=== PATIENT | female | born 1940 | race Caucasian/White ===

== ENCOUNTER 2023-11-26 09:09 | Day surgery (SDC) | payer OTHER, SELFPAY | END 2023-11-26 11:15 | disposition home or self-care (01) | LOC: CATH 09:09 | PROVIDERS: ATTENDING PHYSICIAN Internal Medicine Cardiovascular Disease; FAMILY PHYSICIAN Internal Medicine | DX: I08.1 Rheumatic disorders of both mitral and tricuspid valves (principal); I70.0 Atherosclerosis of aorta; I08.8 Other rheumatic multiple valve diseases | CPT/HCPCS: 93312; 93320; 93325 ==

== ENCOUNTER → 2023-12-01 14:40 | Outpatient (REF) | payer OTHER, SELFPAY | LOC: PAVMRI 14:40 | PROVIDERS: ATTENDING PHYSICIAN Physician Assistant Surgical; FAMILY PHYSICIAN Internal Medicine; REFERRING PHYSICIAN Student in an Organized Health Care Education/Training Program | DX: M25.572 Pain in left ankle and joints of left foot (principal) | CPT/HCPCS: 73721 ==

== ENCOUNTER 2023-12-07 07:52 | Day surgery (SDC) | payer OTHER, SELFPAY ==
[2023-12-07] VITALS (9 sets, daily range): BP systolic 126–146; BP diastolic 51–126; BMI 24.2
[2023-12-07 08:41] LABS: Hematocrit 33.1 % (37.0-47.0); Hemoglobin 11.2 g/dL (12.0-16.0); Mean Corp Hgb Conc. 33.8 g/dL (33.0-37.0); Mean Corpuscular Hgb 32.9 pg (27.0-31.0); Mean Corpuscular Volume 97.4 fL (81.0-99.0); Mean Platelet Volume 10.6 fL (7.4-10.4); Platelet Count 330 10^3/uL (130-400); Red Cell Dist. Width 12.9 % (11.5-14.5); White Blood Cell Count 6.5 10^3/uL (4.8-10.8)
[2023-12-07] MEDS: LOW STRENGTH ASPIRIN 324 MG PO (08:42)
[2023-12-07] MEDS: NSS 180 ML IV (08:43)
[2023-12-07 09:00] LABS: Blood Urea Nitrogen 20 mg/dl (7-17); Calcium 9.7 mg/dl (8.4-10.2); Carbon Dioxide 25 mmol/L (22-30); Chloride 107 mmol/L (98-107); Estimated Creatinine Clearance 56 ml/min; Glucose 89 mg/dl (70-99); Potassium 4.3 mmol/L (3.5-5.1); Sodium 136 mmol/L (135-145); eGFR > 60.00
--- NOTE | 2023-12-07 10:50 | ITS.CL.CATH ---
Change Management - Catheterization
Cardiac Catheterization
Procedure Report:
RIGHT AND LEFT HEART STUDY
Date of Procedure: December 07, 2023
Referring: Dr. Nilesh Dawson
PROCEDURES:
1. Right heart catheterization
2. Left heart catheterization with coronary and single-plane left ventriculography
INDICATION: Severe mitral regurgitation
ACCESS: Right radial artery and right brachial vein
HEMODYNAMICS : mmHg
RA (m) : 15
RV (s/d,m) : 56/14, 19
PA (s/d, m) : 55/25, 39
PCWP (m) : 26 with V waves to 50 mmHg
AO (s/d, m) : 150/71, 98
LV (s/d) : 152/18
LVEDP : 24
Estimated Jamal Cardiac Output: 3.5 L / min and Cardiac Index: 2.2 L/ min / m-2
CORONARY FINDINGS :
Dominance: Right
LEFT MAIN: Normal
LEFT ANTERIOR DESCENDING: Normal
CIRCUMFLEX: Normal
RIGHT CORONARY ARTERY: Normal
VENTRICULOGRAPHY: Left ventriculography was performed in an LUCIO projection. The digital single-plane left ventricular ejection fraction is estimated above 65% with 4+ mitral regurgitation
RADIATION SUMMARY: Fluoro Time (min): 5.1, Dose (mGy): 173, DAP (Gy.cm2) : 14.6
CONCLUSIONS
1. Mitral regurgitation : Severe 4+ with large V-waves noted on right heart catheterization
2. Coronary arteries are angiographically normal
RECOMMENDATIONS
1. Followup with Dr. Curry as scheduled.
Copy to: Dr. Viktor Curry, Dr. iNlesh Dawson, Dr. Manjit Torres
== END 2023-12-07 13:39 | disposition home or self-care (01) ==
LOC: CATH 07:52
PROVIDERS: ATTENDING PHYSICIAN Internal Medicine Interventional Cardiology; FAMILY PHYSICIAN Internal Medicine
DX: I34.0 Nonrheumatic mitral (valve) insufficiency (principal); I25.10 Atherosclerotic heart disease of native coronary artery without angina pectoris; I34.1 Nonrheumatic mitral (valve) prolapse
CPT/HCPCS: 80048; 85027; 93460; C1769; C1894; Q9967

== ENCOUNTER → 2023-12-22 08:24 | Outpatient (REF) | payer OTHER, SELFPAY | LOC: HWRAD 08:24 | PROVIDERS: ATTENDING PHYSICIAN Thoracic Surgery (Cardiothoracic Vascular Surgery); FAMILY PHYSICIAN Internal Medicine | DX: I34.0 Nonrheumatic mitral (valve) insufficiency (principal); Z01.818 Encounter for other preprocedural examination | CPT/HCPCS: 71275; 74174; Q9967 ==

== ENCOUNTER 2023-12-27 05:08 | Inpatient (IN) | payer OTHER, SELFPAY ==
[2023-12-21 12:04] VITALS: BMI 25.0
[2023-12-21 12:35] LABS: Urine Albumin Negative (Neg - Trace); Urine Bilirubin Negative (Negative); Urine Character Clear (Clear); Urine Color Yellow; Urine Glucose Negative (Negative); Urine Ketone Negative (Negative); Urine Leukocyte Negative (Negative); Urine Nitrite Negative (Negative); Urine Occult Blood Negative (Negative); Urine Urobilinogen Negative (Neg - 1+)
[2023-12-21 12:41] LABS: % Basophils 0.3 % (0-2); % Eosinophils 1.4 % (0-6); % Immature Granulocytes 0.2 % (0-0.5); % Lymphocytes 40.5 % (20.5-51.1); % Monocytes 9.1 % (1.7-9.3); % Neutrophils 48.5 % (42.2-75.2); Absolute Eosinophils 0.1 10^3/uL (0-0.7); Absolute Lymphocytes 2.6 10^3/uL (1.2-3.4); Absolute Monocytes 0.6 10^3/uL (0.1-0.6); Absolute Neutrophils 3.1 10^3/uL (1.4-6.5); Hematocrit 33.6 % (37.0-47.0); Hemoglobin 11.5 g/dL (12.0-16.0); Mean Corp Hgb Conc. 34.2 g/dL (33.0-37.0); Mean Corpuscular Hgb 32.5 pg (27.0-31.0); Mean Corpuscular Volume 94.9 fL (81.0-99.0); Mean Platelet Volume 10.8 fL (7.4-10.4); Nucleated Red Blood Cells % 0 %; Platelet Count 342 10^3/uL (130-400); Red Blood Cell Count 3.54 10^6/uL (4.20-5.40); Red Cell Dist. Width 12.7 % (11.5-14.5); White Blood Cell Count 6.5 10^3/uL (4.8-10.8)
[2023-12-21 12:45] LABS: INR 1.04; PT 13.4 Sec (11.4-14.6)
[2023-12-21 12:46] LABS: APTT 31.4 Sec (23.4-35.0)
[2023-12-21 13:13] LABS: ALT (SGPT) 45 U/L (0-35); AST (SGOT) 44 U/L (14-36); Albumin 4.5 g/dl (3.5-5.0); Alkaline Phosphatase 92 U/L (38-126); Blood Urea Nitrogen 19 mg/dl (7-17); Calcium 10.1 mg/dl (8.4-10.2); Carbon Dioxide 26 mmol/L (22-30); Chloride 104 mmol/L (98-107); Direct Bilirubin 0.1 mg/dl (0.0-0.4); Estimated Creatinine Clearance 44 ml/min; Glucose 93 mg/dl (70-99); Potassium 4.4 mmol/L (3.5-5.1); Sodium 135 mmol/L (135-145); Total Bilirubin 0.6 mg/dl (0.2-1.3); Total Protein 7.2 g/dl (6.3-8.2); eGFR > 60.00
[2023-12-21 13:20] LABS: Glycohemoglobin (HgbA1c) 5.2 % (4.0-5.6)
--- NOTE | 2023-12-21 14:15 | CM ---
spoke to pt in PAT's. we discussed preop MV Repair teaching including driving and lifting restrictions. she is prev indep, lives alone in a 1 story home with 2 steps to enter. she has a cane and a walker to use if needed. she has the ct surg educ
book, soap and instructions. she is agreeable to a f/u visit from the ct transitional care nurses after dc. plan is for MV Repair 12/26, cm role explained and all questions answered.
--- NOTE | 2023-12-21 14:17 | CM ---
spoke to pt in PAT's. we discussed preop MV Repair teaching including driving and lifting restrictions. she is prev indep, lives alone in a 1 story home with 2 steps to enter. she has a cane and a walker to use if needed. she has the ct surg educ
book, soap and instructions. she is agreeable to a f/u visit from the ct transitional care nurses after dc. her daughter will be staying with her. plan is for MV Repair 12/26, cm role explained and all questions answered.
[2023-12-27] VITALS (17 sets, daily range): BP systolic 97–147; BP diastolic 50–72; BMI 23.6
--- NOTE | 2023-12-27 01:33 | W.PN.CT ---
Assessment / Plan
-
Assessment:
S/P Right mini thoracotomy with right common femoral artery and vein cannulation/ Radical mitral valve repair (28 mm band annuloplasty, cleft closure at P1-P2, P2-P3, placement of [place]-Alexis cords to the posterior leaflet x 2 and to the anterior
leaflet at A2 x 2), by Dr. Curry, 12/27/23, pod#1
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
-Mod pulm HTN
-LVEF 55-60% per intraop LEONARDO
-Acute on chronic diastolic CHF
-HTN
-HLD
-Osteoporosis
-Arthritis
-Neuropathy
-Chronic back pain/sciatica s/p steroid injections
-Scleroderma
-Vit D deficiency
-Glaucoma
-Cataracts S/P cataracts with lens implants
-S/P thyroid nodule needle biopsy, 10/2023
-S/P R TKR, 06/26/21
-S/P R inguinal herniorrhaphy
-S/P Partial hysterectomy
-S/P Repair of left wrist fx with retained hardware
-S/P 4-5 teeth extractions with implants
-Acute postop blood loss/Anemia on chronic anemia (stable without blood transfusion)
-Acute postop atelectasis
-Acute postop metabolic acidosis
-Acute postop hypovolemia with subsequent hypervolemia
Plan:
-No major issues overnight. Hemodynamically and neurologically intact
-Successfully extubated yesterday 12/27/23 in the OR
-No drips other than insulin gtt per protocol
-U/o since OR mL
-Monitor chest tube output: med + R pl
-[place] d/c'd yesterday 12/27/23 @ 1800
-D/C'd a-line this AM @ 0400
-Transfer to [facility] phase later today once off insulin gtt
-D/C sibley catheter
-Maintain cordis
-Monitor temporary pacer (will cut prior to d/c home)
-Cont. current meds (ASA, Amiodarone, Lopressor)
-Encourage use of IS
-Wean off of O2 as tolerated
-OOB into chair/Ambulate
Subjective
-
Date of Service: December 27, 2023
Objective Data
-
PT 13.4 Sec (11.4-14.6) 12/21/23 12:15
INR 1.04 12/21/23 12:15
APTT 31.4 Sec (23.4-35.0) 12/21/23 12:15
[2023-12-27 05:48] LABS: Hematocrit 34.6 % (37.0-47.0); Hemoglobin 11.5 g/dL (12.0-16.0); Mean Corp Hgb Conc. 33.2 g/dL (33.0-37.0); Mean Corpuscular Hgb 32.6 pg (27.0-31.0); Mean Platelet Volume 10.7 fL (7.4-10.4); Platelet Count 319 10^3/uL (130-400); Red Blood Cell Count 3.53 10^6/uL (4.20-5.40); Red Cell Dist. Width 12.9 % (11.5-14.5); White Blood Cell Count 6.8 10^3/uL (4.8-10.8)
[2023-12-27] MEDS: PROTONIX 40 MG PO (05:52)
[2023-12-27] MEDS: BACTROBAN 2% OINTMENT 1 APPLIC NASAL ×2 (05:52→20:15)
[2023-12-27] MEDS: MAGNESIUM OXIDE 500 MG PO (05:52)
[2023-12-27] MEDS: LOPRESSOR 25 MG PO (05:52)
--- NOTE | 2023-12-27 06:06 | PTCARENOTE ---
received pt into CVICU room 2266. pt confirmed 2 showers at home. pt clipped, prepped, and washed. pre-op labs obtained and meds given. pre-op education provided. all questions answered.
--- NOTE | 2023-12-27 06:10 | W.CVOR.SURPR ---
CVOR Surgeon Immed Pre Op
-
I have examined this patient prior to performance of the scheduled procedure.
The patient's condition is unchanged from the time of the dictated/written History and
Physical and the patient is able to undergo the scheduled procedure.
Mitral valve repair
[2023-12-27 06:12] LABS: Blood Urea Nitrogen 17 mg/dl (7-17); Calcium 9.6 mg/dl (8.4-10.2); Carbon Dioxide 25 mmol/L (22-30); Chloride 104 mmol/L (98-107); Estimated Creatinine Clearance 56 ml/min; Glucose 92 mg/dl (70-99); Magnesium 2.1 mg/dl (1.6-2.3); Sodium 134 mmol/L (135-145); eGFR > 60.00
[2023-12-27 07:34] LABS: Urine Albumin Negative (Neg - Trace); Urine Bilirubin Negative (Negative); Urine Character Clear (Clear); Urine Color Yellow; Urine Glucose Negative (Negative); Urine Ketone Negative (Negative); Urine Leukocyte Negative (Negative); Urine Nitrite Negative (Negative); Urine Occult Blood Negative (Negative); Urine Specific Gravity 1.005 (<1.030); Urine Urobilinogen Negative (Neg - 1+); Urine pH 6.5 (5.0-9.0)
[2023-12-27 07:53] LABS: ACT+ - POC 82 Seconds (82-134)
[2023-12-27 07:58] LABS: B.E. - POC -2.3 mmol/L; Glucose - POC 102 mg/dl (65-99); HCO3 - POC 24 mmol/L (21-29); Hematocrit - POC 31 % PCV (37-47); Hemodilution- POC No; Hemoglobin Calculated - POC 10.7; Ionized Calcium - POC 1.33 mmol/L (1.12-1.27); O2 Saturation %Calculated-POC 99.8 5 (92-96); PCO2 - POC 44 mmHg (35-45); PO2 - POC 247 mmHg (80-100); Potassium - POC 3.9 mmol/L (3.6-5.0); Sodium - POC 139 mmol/L (135-145); pH - POC 7.34 (7.35-7.45)
--- NOTE | 2023-12-27 08:38 | CM ---
Reviewed chart. Mrs. Kim is in the operating room today. Prior to admission she resides alone in a one stroy home with two steps to enter. Prior to admission she was independent with ambulation and adls. She has a single point cane and
rolling walker at home to use if needed. Her daughter is planning on staying with her after surgery. Will need to see her current functional level to see if she will have any skilled care needs. Medical work-up in progress. The discharge plan is
undetermined at this time.
[2023-12-27 08:42] LABS: ACT+ - POC 408 Seconds (82-134)
[2023-12-27 09:05] LABS: ACT+ - POC 449 Seconds (82-134)
[2023-12-27 09:27] LABS: B.E. - POC -1.3 mmol/L; Glucose - POC 149 mg/dl (65-99); HCO3 - POC 25 mmol/L (21-29); Hematocrit - POC 28 % PCV (37-47); Hemodilution- POC Yes; Hemoglobin Calculated - POC 9.6; Ionized Calcium - POC 1.01 mmol/L (1.12-1.27); O2 Saturation %Calculated-POC 99.9 5 (92-96); PCO2 - POC 50 mmHg (35-45); PO2 - POC 355 mmHg (80-100); Potassium - POC 6.4 mmol/L (3.6-5.0); Sodium - POC 135 mmol/L (135-145); pH - POC 7.31 (7.35-7.45)
[2023-12-27 09:53] LABS: ACT+ - POC 504 Seconds (82-134)
[2023-12-27 09:57] LABS: B.E. - POC 0.9 mmol/L; Glucose - POC 167 mg/dl (65-99); HCO3 - POC 25 mmol/L (21-29); Hematocrit - POC 26 % PCV (37-47); Hemodilution- POC Yes; Hemoglobin Calculated - POC 8.8; Ionized Calcium - POC 1.06 mmol/L (1.12-1.27); O2 Saturation %Calculated-POC 99.9 5 (92-96); PCO2 - POC 35 mmHg (35-45); PO2 - POC 315 mmHg (80-100); Potassium - POC 5.9 mmol/L (3.6-5.0); Sodium - POC 135 mmol/L (135-145); pH - POC 7.46 (7.35-7.45)
[2023-12-27 10:28] LABS: B.E. - POC -1.8 mmol/L; Glucose - POC 125 mg/dl (65-99); HCO3 - POC 25 mmol/L (21-29); Hematocrit - POC 27 % PCV (37-47); Hemodilution- POC Yes; Hemoglobin Calculated - POC 9.3; Ionized Calcium - POC 1.15 mmol/L (1.12-1.27); O2 Saturation %Calculated-POC 99.1 5 (92-96); PCO2 - POC 50 mmHg (35-45); PO2 - POC 150 mmHg (80-100); Potassium - POC 4.7 mmol/L (3.6-5.0); Sodium - POC 141 mmol/L (135-145)
[2023-12-27 10:28] LABS: ACT+ - POC 466 Seconds (82-134)
[2023-12-27 11:03] LABS: ACT+ - POC 98 Seconds (82-134)
--- NOTE | 2023-12-27 11:23 | W.PN.CT.SURG ---
CT Surgery Operative Note
-
CARDIAC SURGERY OPERATIVE REPORT
Preoperative Diagnosis: Myxomatous degeneration of mitral valve with severe mitral valve insufficiency, symptomatic
Postoperative Diagnosis: Same
Procedure(s) Performed:
1. Right mini thoracotomy with right common femoral artery and vein cannulation under LEONARDO guidance using open Seldinger technique
2. Radical mitral valve repair (28 mm band annuloplasty, cleft closure at P1-P2, P2-P3, placement of [place]-Alexis cords to the posterior leaflet x 2 and to the anterior leaflet at A2 x 2)
3. Placement temporary ventricular pacing wires
4. Trans esophageal echocardiography
Date of Surgery: 12/27/2023
Comorbidities:
1. 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
2. Shortness of breath, symptomatic mitral insufficiency
3. Glaucoma
4. Hypertension
5. Hyperlipidemia
6. Orthopedic issues
7. Osteopenia/osteoporosis
8. Acute on chronic congestive heart failure with LVEDP measuring 24 with a wedge pressure of 26 on cath, secondary to significant volume overload from mitral valve insufficiency
Attending Surgeon: Viktor Curry MD, MS
Assistants: Kaylyn Muñoz PA-C (present and necessary for retraction, suctioning, exposure, suture management, wound closure, etc. under my direction)
Anesthesiology: Yuri Alberts MD and Cirilo Bravo CRNA
Scrub and Circulating RNs: Caroline Bazan RN, Emily Wagner RN
Set Up Mechanic Automatic Line: Fred Loya CCP
Anesthesia: GETA
EBL: per perfusion records
Products: None
CPB Time: 121 minutes
Aortic Cross Clamp Time: 90 minutes
Indication(s) for Procedures: This is an 83-year-old female who has known mitral valve insufficiency. She developed worsening mitral valve regurgitation likely secondary to a flail segment of P2. She underwent left heart cath which found
significant elevation in her LVEDP and wedge pressures indicating acute on chronic congestive heart failure with volume overload. She was developing worsening shortness of breath even with light exertion. Given her stage D symptomatology, she met
class I indication for mitral valve repair.
Mitral Valve Description: Thickened leaflets both anterior and posterior. Significant prolapse of P2 and P3 with large cleft between P2 and P3. Flail segment at P2. Short C-sept distance making her high risk for systolic anterior motion of the
leaflets.
Implants:
1. 28mm ANNA PhysioFlex Band, SN [id number]
2. 4 pairs of CV-4 GoreTex neochordalplasty (2 pairs to the PL and 2 pairs to the AL at A2
Specimen:
1. None
Findings: Left ventricular ejection fraction preoperatively was approximately 60% with no regional wall motion abnormalities. Following surgery EF remained the same with no new regional wall motion abnormalities. The mitral valve was inspected and
found to have significant prolapse of P2 and P3 scallops with a flail segment at the P2 free margin. Her coaptation�septal distance was short approximate 1.9 making her at high risk for systolic anterior motion of mitral leaflets. The mitral valve
was repaired with a total of 12 nonpledgeted 2 Ethibond sutures to secure the annulus to a 28 mm band annuloplasty. 2 pairs of [place]-Alexis sutures were placed from the posterior medial papillary muscle heads to the P2 and P3 along with cleft closure
at P1 P2/P2 P3. 2 additional pairs of [place]-Alexis sutures were placed from the anterior lateral and posterior medial papillary muscle heads to the A2 scallop to reduce the risk of systolic anterior motion postoperatively. After coming off
cardiopulmonary bypass, there was [id number] residual mitral valve insufficiency, no systolic anterior motion of the leaflets, and a mean gradient of 1mmHg across the valve. Her cardiac index had improved from approximately 1.5 to 1.8-1.9
without inotropic support. Of note, our Hanane clamp was malfunctioning and so I had exchange for a new Hanane clamp and also deliver cardioplegia again in order to obtain an adequate cardiac arrest.
Description of Procedure: The patient was brought to the operating room and placed supine in the table with their right side bumped up and right arm down. Arterial and central access was performed by anesthesiology. The patient was prepped from chin
to toes in the typical sterile fashion. Trans esophageal evaluation of cardiac function and all valvular structures was conducted. Before commencing, a time out was performed by all members of the team. All were in agreement with the procedure and
laterality and I proceeded. A small right groin incision was made to expose the common femoral artery and vein. A total of 35,000 units of heparin was given. A 5-6 cm right lateral thoracotomy was performed over the 4th intercostal space verified by
visualization of the hilum. The common femoral artery and vein were cannulated under transesophageal guidance using open Seldinger technique. The arterial line was verified to have an appropriate bounce and pressure correlating with testing. Once
the ACT was above 400, retrograde autologous priming was done and we commenced cardiopulmonary bypass. Target core temperature was 33-34�C.
Carbon dioxide was used to flood the field. The course of the phrenic nerve was identified to prevent injury. The pericardium was opened and two stay sutures were placed to facilitate a ``pericardial table.�� The oblique sinus was developed followed
by the inter atrial groove. An antegrade root vent was inserted and secured with a pursestring suture. The pump flow and mean arterial pressure were lowered and an aortic cross clamp was applied to the ascending aorta. A total of 1.2L initial dose
of Antegrade cardioplegia was delivered. We had rapid electro myocardial quiescence at 170cc of cardioplegia. However, it appears that she would clamp was damaged and full cross-clamp of the aorta was not achieved and so she had recovery electro
myocardial activity after just 1 minute of crossclamping. This was then exchanged out for an issue with a clamp and additional cardioplegia was given until there was electrical myocardial quiescence. The ventricle was monitored for distension by
echocardiogram during this time. The left atrium was incised and enlarged. A left atrial lift retractor was placed. The mitral valve was inspected. The mitral valve was repaired as described above. The left atriotomy was closed with 3-0 prolene in a
running fashion leaving a ventricular vent in place to de-air. After filling the heart, the vent was removed and the prolene was secured with a corknot. Unipolar ventricular pacing wire was placed on the base of the right ventricle. The patient was
placed into Trendelenburg position and pump flows were lowered. The clamp was slowly removed with the root vent turned on. De-airing maneuvers were performed. We started to rewarm with a target of 36.5�C.
As the heart recovered, the mitral valve and ventricular function were assessed under transesophageal echocardiogram. The LV vent and root vents were removed. Once weaning parameters were satisfactory, cardiopulmonary bypass flow was lowered until
we were off cardiopulmonary bypass the mitral valve was inspected again. All surgical sites were inspected for hemostasis and appeared appropriate. The lines were clamped and the arterial was relocated to the venous cannula to give back volume. A
test dose of protamine was delivered and patient was monitored for any adverse reactions followed by complete protamine dosing. The femoral vessels were decannulated and repaired as indicated. The pericardium was approximated with 2-0 ethibond
sutures secured with corknots. One 19F Kin drain remained in the pleural space and one 24F kin drain in the pericardium. There was an excellent palpable distal to the TASSEL MAKING MACHINE OPERATOR cannulation site. Local analgesia was injected to the thoracotomy. The rib
space was approximated with #2 ethibond suture. The incision was closed in layers in a running fashion.
All instrument, sponge, and needle counts were confirmed to be correct x 2 at the end of the operation. The patient was transferred to the cardiac intensive care unit in extubated, critical but stable condition.
I, Dr. Viktor Curry, was present, scrubbed for, and performed all critical elements of this procedure.
Viktor Curry MD, MS
Cardiothoracic Surgeon
[facility]
This dictation was created using the [employer] dictation system. Please excuse any grammatical, typographical, or 'sound alike' errors
[2023-12-27 11:30] LABS: B.E. - POC -5.7 mmol/L; Glucose - POC 79 mg/dl (65-99); HCO3 - POC 21 mmol/L (21-29); Hematocrit - POC 27 % PCV (37-47); Hemodilution- POC Yes; Hemoglobin Calculated - POC 9.2; O2 Saturation %Calculated-POC 99.1 5 (92-96); PCO2 - POC 46 mmHg (35-45); PO2 - POC 158 mmHg (80-100); Potassium - POC 4.4 mmol/L (3.6-5.0); Sodium - POC 143 mmol/L (135-145); pH - POC 7.27 (7.35-7.45)
--- NOTE | 2023-12-27 11:35 | PTCARENOTE ---
Received patient from CVOR at 1135. Pt extubated. Drowsy. Pt oriented to self, place, and time. Able to squeeze hands and wiggle toes with equal strength throughout. NSR with PVCs on tele with rates in the 60s. BP stable 123/56. CI 2.07. PA 35/18,
CVP 11. Heart tones audible. Bilateral radial and DP pulses palpable. No edema noted. Epicardial v-wire present set to back up 50/8/0.8, no pacing noted after thresholds completed. Transitioned to 6L NC. POX 95%. Lungs diminished throughout.
Mediastinal and Right pleural chest tube y-sited to 1 atrium to -20cm suction draining red fluid. No air leaks, tidaling, crepitus noted. Abdomen soft, nontender. Hypoactive BS. Victoria catheter intact draining adequate amounts of clear yellow urine.
Right lateral chest incision approximated with skin glue, FRANCES. Scattered right chest puncture sites approximated with skin glue, IRRIGATOR GRAVITY FLOW. Right groin incision approximated with skin glue, IRRIGATOR GRAVITY FLOW. Right IJ cordis and swan floated to 42cm. Left radial nuris
intact. All lines flushed, leveled, and zeroed with appropriate waveforms. Right AC 20g PIV intact. VIP and Cordis NSS KVOs infusing. No other gtts at this time. Post op labs, EKG, and CXR completed. See MAR for medication administration. See
worklist for complete nursing assessment.
[2023-12-27 11:49] LABS: Glucose - Point of Care 106 mg/dl (70-99)
[2023-12-27 11:52] LABS: HCO3 22.6 mmol/L (21-28); Ionized Calcium 1.37 mMOL/L (1.15-1.33); O2 Saturation % 99.1 % (94-98); PCO2 47 mmHg (32-35); PO2 128 mmHg (83-108); Potassium 4.6 mMOL/L (3.5-5.1); Sodium 139 mMOL/L (136-145); pH 7.29 (7.35-7.45)
[2023-12-27 11:53] LABS: Hematocrit 28.6 % (37.0-47.0); Hemoglobin 9.9 g/dL (12.0-16.0); Platelet Count 204 10^3/uL (130-400)
[2023-12-27] MEDS: ANCEF 10 IV ×2 (11:55→11:56)
[2023-12-27] MEDS: NSS 500 IV (11:56)
[2023-12-27] MEDS: NEURONTIN PO (11:56)
[2023-12-27 12:03] LABS: INR 1.31; PT 16.1 Sec (11.4-14.6)
[2023-12-27 12:04] LABS: APTT 31.3 Sec (23.4-35.0)
[2023-12-27 12:06] LABS: Blood Urea Nitrogen 14 mg/dl (7-17); Estimated Creatinine Clearance 56 ml/min; Glucose 104 mg/dl (70-99); Magnesium 4.3 mg/dl (1.6-2.3)
--- NOTE | 2023-12-27 12:22 | CON.INTV ---
Consultation
Consultation Request
Date/Time Consultation Requested: 12/27/2023-12:30 PM
Date/Time Consultation Performed: 12/27/2023-12:30 PM
Requesting Provider: Cardiothoracic surgery
Performing Provider: Dr. Emanuel
Reason for Consultation: Postoperative ventilator/critical care management
Medical History
-
Chief Complaint: Mitral valve insufficiency secondary to myxomatous degeneration type II wit
History of Present Illness:
83-year-old female with a history of mitral valve insufficiency, hypertension, hyperlipidemia as well as osteoporosis with acute on top of chronic congestive heart failure had symptomatic mitral valve insufficiency and underwent minithoracotomy with
radical mitral valve repair-correctional officer lieutenant consulted for postoperative ventilator/critical care management 12/27/2023. The patient was extubated prior to coming to the ICU. Patient is moving extremities, extremely groggy and review of systems reliably
cannot be obtained.
Past Medical History
Past Medical History: None (Hypertension. Hyperlipidemia. Osteoporosis. Glaucoma. Mitral valve insufficiency status post radical repair 12/2023. Right TKR 2020)
Social History
Tobacco: Non-smoker
Alcohol: None
Drug: None
Living: With Family
Occupational Exposures: No known asbestos exposure
Environmental Exposures: No known tuberculosis exposure
Family History
Family History: Other (Aortic aneurysm, diabetes, CAD and hypertension)
Allergies / Home Medications
Allergies
Allergy/AdvReac Type Severity Reaction Status Date / Time
acetaminophen [From Percocet] Allergy Nausea / Verified 12/20/23 08:52
Vomiting
adhesive tape [Adhesive Tape] Allergy Rash Verified 12/24/23 16:49
oxycodone [From Percocet] Allergy Nausea / Verified 12/20/23 08:52
Vomiting
Home Medications
Medication Instructions Recorded Confirmed Last Taken Type
latanoprost 0.005 % eye drops 1 drp ophthalmic (eye) HS ##0 06/03/21 12/27/23 12/26/23 22:00 History
multivitamin with folic acid 400 1 tab PO DAILY 06/03/21 12/27/23 12/26/23 08:00 History
mcg tablet (Tab-A-Dano)
Pravagen 1 cap PO DAILY 11/26/23 12/27/23 12/26/23 08:00 History
coenzyme Q10 100 mg capsule 300 mg PO DAILY 11/26/23 12/27/23 12/26/23 08:00 History
(CoQ-10)
turmeric 400 mg capsule 1,500 mg PO DAILY 11/26/23 12/27/23 12/17/23 08:00 History
Review of Systems
-
Unable to Obtain full review of systems at this time due to: Patient Intubation
Vitals / Labs / Diagnostic Testing
Vital Signs
Temp Pulse Resp BP Pulse Ox
96.6 F L 66 17 125/57 97
12/27/23 12:00 12/27/23 12:10 12/27/23 12:10 12/27/23 12:00 12/27/23 12:10
Lab Data
12/27/23 11:46
Laboratory Results
12/27/23
11:46
pH 7.29 L
pCO2 47 H
pO2 128 H
HCO3 22.6
O2 Delivery Level Not Reportable
Diagnostic Testing:
Physical Exam
-
Exam:
Well-nourished and well-developed in no apparent distress
HEENT-atraumatic, normocephalic, oral tracheal intubation
Heart-regular rate and rhythm-no murmurs, rubs or gallops
Chest-clear to auscultation, no wheezes, crackles, median sternotomy bandage is not removed
Abdomen soft nondistended
Extremities-no cyanosis, clubbing, edema and good peripheral pulses
Integument-intact, no rashes, lesions or ecchymosis
Neurologically not alert, not oriented, not moving any of his extremities sedated on a ventilator
Assessment
-
83-year-old female with a history of mitral valve insufficiency, hypertension, hyperlipidemia as well as osteoporosis with acute on top of chronic congestive heart failure had symptomatic mitral valve insufficiency and underwent minithoracotomy with
radical mitral valve repair-correctional officer lieutenant consulted for postoperative ventilator/critical care management 12/27/2023.
Assessment
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
Status post right minithoracotomy-radical mitral valve repair-Dr. Curry-12/27/2023
Mild anemia-hemoglobin 9.9
Incidental pulmonary nodules noted on CT chest-sub-5 mm right upper lobe
Conditions present prior to admission:
Hypertension.
Hyperlipidemia.
Osteoporosis.
Glaucoma.
Mitral valve insufficiency status post radical repair 12/2023.
Right TKR 2020
Plan
Patient tolerated extubation intraoperatively-currently very groggy
FiO2 will be weaned
Follow ABG if needed
Aspiration precautions
Incentive spirometry if needed
Nebulizers if needed-currently not bronchospastic
Pulmonary artery catheter parameters will be followed
Pressors/antihypertensive/inotropes/diuretics will be provided as needed
Temporary epicardial pacer in place
Monitor chest tube output
Monitor hemoglobin
Monitor platelet count and coags
Transfuse blood product if needed
CT surgery following chest tubes
Monitor blood sugar
Insulin drip per protocol
Aspiration precautions
VAP prevention protocol
DVT prophylaxis
Early nutrition
Early mobilization
Consider outpatient pulmonary follow-up of incidental pulmonary nodules-recommend repeat CT chest in 1 year
Critical care statement: A total of 46 minutes of critical care time was provided for this patient today. This includes management of ventilator, spontaneous breathing trial, arterial blood gases, pressors, of unstable vital signs, evaluation of the
patient at bedside, ventilator and pressor management, reviewing the patient's pertinent medical records including radiographs, microbiology, laboratory evaluations, and discussion with primary team and critical care nursing.
Diagnostic data:
Chest x-ray 12/27/2023-left basilar atelectasis
CT chest abdomen and pelvis 12/22/2023-no acute pathology within the chest abdomen or pelvis, couple questionable sub-5 mm nodules right upper lobe
Cardiac catheterization 12/07/2023-the right and left heart, RA 15, RV 56/14, PA 55/25, PCWP 26 with V waves up to 50, LVEDP 24, no significant coronary artery disease
Data Reviewed
-
EKG: Report reviewed by me
Radiology: Report reviewed by me
CT Scan: Report reviewed by me
Ultrasound: Report reviewed by me
Medical Tests (Nuc Med, Echo etc): Report reviewed by me
Labs: Labs reviewed by me
Old Records: Reviewed
Critical Care Time (in minutes): 50
--- NOTE | 2023-12-27 12:35 | PTCARENOTE ---
CT ROLL FINISHER notified of pH 7.29. Also notified of allergy to acetaminophen and orders for drug. Per CT ROLL FINISHER, may still give acetaminophen as ordered. Pt's daughter and son at bedside for visit.
[2023-12-27 13:08] LABS: Glucose - Point of Care 180 mg/dl (70-99)
[2023-12-27] MEDS: TORADOL 15 MG IV (13:20)
[2023-12-27] MEDS: ROXICODONE 2.5 MG PO (13:20)
--- NOTE | 2023-12-27 13:26 | W.PN.CARDCBS ---
Addendum entered and electronically signed by Marbin Rubio MD 12/27/23 15:41:
I saw and examined the patient.
The UX ARCHITECT or PA's note was reviewed and I agree with the note.
Comment: General: Well developed, well nourished in NAD.
Neck: Supple, no JVD, HJR, carotids +2 B/L, no bruits bilaterally.
Heart: Non displaced PMI, RRR, no murmurs, No S3, S4, no rubs.
Lungs: Clear to auscultation bilaterally, no wheeze, rhonchi, rubs bilaterally,
normal expiratory phase.
Extremities: No clubbing, cyanosis or edema bilaterally.
Neuro: Grossly nonfocal, awake, alert and oriented x3.
Kiarra has no significant past medical history. She is seen status post mitral valve repair via minithoracotomy. She was extubated in the OR. Cardiac index 2.1 PA pressure 31/17. She is on no pressors. Stable cardiology status. Discussed at
bedside with patient's son and daughter
Original Note:
Today's Communication / Plan
-
Continue post op care
Impression / Plan
-
PCP: Dr. Dozier
Paint Prepper: Dr. Dawson
Impression:
Severe MR
s/p mini thoracotomy mitral valve repair (28 mm band annuloplasty, cleft closure at P1-P2, P2-P3, placement of [place]-Alexis cords to the posterior leaflet x 2 and to the anterior leaflet at A2 x 2) 12/27/2023
Glaucoma
Thyroid nodules
LEONARDO 11/26/2023: EF 55-60%, bileaflet prolapse located predominately at P2/P3 and A2, posterior leaflet with possible torn chord, severe eccentric MR, mean gradient 4 mmHg, moderate TR, systolic flow reversal in pulmonary veins
Plan:
-Patient had increased SOB for approximately 6 months and was found to have severe MR.
-Is now s/p mini thoracotomy and MVR 12/27/2023 as noted above. Seen postop in CVICU.
-Extubated and off pressors. Only complaint is back pain.
-No blood products given intra op. Hgb 9.9.
-Post op EKG stable. SR w/ PVCs.
-Continue post op care
-Wean O2 as able.
Progress Note - Paint Prepper
Subjective
Date of Service: December 27, 2023
Only complaint is back pain.
Objective
Labs:
12/27/23 11:46
Labs
Hgb 9.9 g/dL (12.0-16.0) L 12/27/23 11:46
Hct 28.6 % (37.0-47.0) L 12/27/23 11:46
Plt Count 204 10^3/uL (130-400) D 12/27/23 11:46
PT 16.1 Sec (11.4-14.6) H 12/27/23 11:47
INR 1.31 12/27/23 11:47
APTT 31.3 Sec (23.4-35.0) 12/27/23 11:47
Sodium 134 mmol/L (135-145) L 12/27/23 05:27
Potassium 4.0 mmol/L (3.5-5.1) 12/27/23 05:27
BUN 14 mg/dl (7-17) 12/27/23 11:46
Creatinine 0.6 mg/dL (0.6-1.0) 12/27/23 11:46
Glucose 104 mg/dl (70-99) H 12/27/23 11:46
Vital Signs and I&O:
Vital Signs
Temp Pulse Resp BP Pulse Ox
97.6 F 67 24 115/55 97
12/27/23 13:00 12/27/23 13:10 12/27/23 13:10 12/27/23 13:00 12/27/23 13:10
Vital Signs
Temp Pulse Resp BP Pulse Ox
97.6 F 67 24 115/55 97
12/27/23 13:00 12/27/23 13:10 12/27/23 13:10 12/27/23 13:00 12/27/23 13:10
Intake & Output
12/25/23 12/26/23 12/27/23 12/28/23
06:59 06:59 06:59 06:59
Intake Total 156 / 156
Output Total 350 / 350
Balance -194 / -194
Physical Exam
Physical Exam
GEN: No distress, awake, responds appropriately to questions
HEENT: supple, anicteric, mmm
LUNGS: CTA b/l, no wheezes/rales
CV: Reg, S1/S2, no murmur
EXT: No clubbing, cyanosis, or edema
NEURO: Gross non-focal
SKIN: Warm, dry, no rash. R chest incision well approximated
--- NOTE | 2023-12-27 13:36 | W.PN.UPDATE ---
Update Note
Progress Note Update
83 year old female admitted for elective mitral valve repair
IV fluids: 1000
U.O.:� 300
Blood:� none
Wires:� V-wires
Inotropes:� none
Pressors:� none
Sedatives:� none
�
NEURO: drowsy, extubated in OR, CHACKO to command, pupils +3mm B/L
RESP: Lungs clear B/L. 1mediastinal and R pleural (25cc on arrival) chest tubes to -20cm suction. Sanguineous drainage
CV: RRR +S1, S2, no S3, no�rub, no murmur. Dermabond to right mini-thoracotomy. RIJ w/[place] locked @ 40cm. PA 38/19; CVP 13; CI 2.3
ABD: round, soft, no BS
EXT: no edema, +2/4 DP pulses B/L, no femoral bruit, left radial A-line intact; right femoral cannulation site intact w/o erythema/bleeding
: Victoria with clear yellow urine
�
A/P: POD #0 s/p radical mitral valve repair (#28 mm band annuloplasty, cleft closure at P1-P2, P2-P3, placement of [place]-Alexis cords to the posterior leaflet x 2 and to the anterior leaflet at A2 x 2)
- extubated in OR
- will need instruction regarding antibiotic prophylaxis for dental and invasive procedures
- will need pre-discharge TTE
�
# acute surgical blood loss anemia-expected
- Hb 9.9 asymptomatic
- trend CBC/CT drainage
�
�# Glaucoma
- continue Pravagen and latanoprost
--- NOTE | 2023-12-27 14:00 | PTCARENOTE ---
Pt bathed with CHG wipes. Turned and repositioned from side to side. No significant dumps from chest tubes. Pt tolerated. IS encouraged-500mL achieved. Pt resting comfortably in bed at this time. Family at bedside.
[2023-12-27 14:06] LABS: Glucose - Point of Care 134 mg/dl (70-99)
[2023-12-27] MEDS: TYLENOL 1000 MG PO ×2 (14:10→22:49)
[2023-12-27 15:02] LABS: Glucose - Point of Care 101 mg/dl (70-99)
[2023-12-27] MEDS: DILAUDID 0.25 MG IV (15:38)
[2023-12-27] MEDS: NEURONTIN 100 MG PO ×2 (15:43→22:49)
[2023-12-27] MEDS: PACERONE 200 MG PO ×2 (15:43→22:49)
[2023-12-27] MEDS: ALBUMIN 5% 250 IV (15:52)
[2023-12-27 15:53] LABS: HCO3 24.3 mmol/L (21-28); PCO2 42 mmHg (32-35); PO2 118 mmHg (83-108); Potassium 4.2 mMOL/L (3.5-5.1); pH 7.37 (7.35-7.45)
[2023-12-27 15:57] LABS: Hematocrit 29.2 % (37.0-47.0); Platelet Count 211 10^3/uL (130-400)
[2023-12-27 15:59] LABS: Glucose - Point of Care 76 mg/dl (70-99)
--- NOTE | 2023-12-27 16:00 | PTCARENOTE ---
Pt reassessed. Pt alert & oriented x4. Pt states she has 8/10 back pain-see MAR. Pt resting between care. NSR on tele with rates in the 60s. BP stable 125/64. POX 100% on 2L NC. CT output WNL. Surgical sites stable. CI 1.73 and UO 25ml last hour, CT
MISSION COORDINATOR aware and orders for 250ml albumin received, administered. Tolerating sips of water and ice chips. All lines remain intact.
--- NOTE | 2023-12-27 17:00 | PTCARENOTE ---
CT ASSISTANT PROFESSOR IN FAMILY STUDIES aware of CI 1.97, no orders at this time.
[2023-12-27 17:02] LABS: Glucose - Point of Care 100 mg/dl (70-99)
[2023-12-27] MEDS: LOW STRENGTH ASPIRIN 81 MG PO (17:02)
[2023-12-27] MEDS: ANCEF 5 IV (17:02)
[2023-12-27] MEDS: FLEXERIL 5 MG PO (17:10)
[2023-12-27] MEDS: LIDOCAINE 4% PATCH 1 PATCH TOPICAL (17:10)
[2023-12-27] MEDS: ROXICODONE 5 MG PO (17:28)
[2023-12-27 18:07] LABS: Glucose - Point of Care 101 mg/dl (70-99)
--- NOTE | 2023-12-27 18:15 | PTCARENOTE ---
CI 1.91, CT PULP REFINER OPERATOR notified. Orders to d/c noreen. Completed, pt tolerated.
[2023-12-27 19:05] LABS: Glucose - Point of Care 105 mg/dl (70-99)
--- NOTE | 2023-12-27 20:00 | PTCARENOTE ---
assumed care of pt from previous RN. pt A&Ox4, resting in bed at time of assessment. VSS. R IJ cordis w/ KVO. L radial a-line. all lines leveled, zeroed, flushed. insulin gtt infusing through PIV, glycemic protocol followed. NSR on tele-monitor, HR
60s. temp epicardial v-wires w/ backup settings VVI 50/8/0.8. CTx2 (R pleural and mediastinal) to -20cm wall suction, draining serosanguineous drainage, no air leak noted. POX 94% on RA. no c/o N/V. pt tolerating clear liquids. sibley catheter
draining clear, yellow urine. all surgical sites stable. see worklist for complete nursing assessment, interventions, VS, I&Os, and gtt titrations.
[2023-12-27] MEDS: SENOKOT-S 1 TABLET PO (20:15)
[2023-12-27 20:22] LABS: Glucose - Point of Care 106 mg/dl (70-99)
[2023-12-27 22:49] LABS: Glucose - Point of Care 87 mg/dl (70-99)
[2023-12-27] MEDS: XALATAN OPHTHALMIC SOLUTION 1 DROP OPHTH (22:49)
[2023-12-28] VITALS (25 sets, daily range): BP systolic 113–146; BP diastolic 55–88; PULSE 60; O2SAT 99; BMI 23.8
--- NOTE | 2023-12-28 | PTCARENOTE ---
assessment remains unchanged. VSS. CT drainage WNL. U/O adequate.
[2023-12-28 01:10] LABS: Glucose - Point of Care 99 mg/dl (70-99)
[2023-12-28] MEDS: ANCEF 5 IV ×2 (02:13→08:05)
[2023-12-28 03:09] LABS: Glucose - Point of Care 104 mg/dl (70-99)
[2023-12-28 03:20] LABS: Hematocrit 29.7 % (37.0-47.0); Mean Corp Hgb Conc. 33.7 g/dL (33.0-37.0); Mean Corpuscular Hgb 32.7 pg (27.0-31.0); Mean Corpuscular Volume 97.1 fL (81.0-99.0); Mean Platelet Volume 10.8 fL (7.4-10.4); Platelet Count 211 10^3/uL (130-400); Red Blood Cell Count 3.06 10^6/uL (4.20-5.40); Red Cell Dist. Width 13.1 % (11.5-14.5); White Blood Cell Count 15.9 10^3/uL (4.8-10.8)
[2023-12-28 03:39] LABS: Blood Urea Nitrogen 28 mg/dl (7-17); Calcium 9.7 mg/dl (8.4-10.2); Carbon Dioxide 19 mmol/L (22-30); Chloride 105 mmol/L (98-107); Estimated Creatinine Clearance 56 ml/min; Glucose 105 mg/dl (70-99); Magnesium 2.9 mg/dl (1.6-2.3); Potassium 4.3 mmol/L (3.5-5.1); Sodium 136 mmol/L (135-145); eGFR > 60.00
--- NOTE | 2023-12-28 03:47 | W.PN.CT ---
Today's Communication / Plan
-
Plan:
-No major issues overnight. Hemodynamically and neurologically intact
-Successfully extubated yesterday 12/27/23 in the OR
-No drips other than insulin gtt per protocol
-U/o since OR 865 mL
-Monitor chest tube output: med + R pl 90/210
-[place] d/c'd yesterday 12/27/23 @ 1800
-D/C'd a-line this AM @ 0400
-Transfer to tele phase later today once off insulin gtt
-D/C sibley catheter
-Maintain cordis
-Monitor temporary pacer (will cut prior to d/c home)
-Cont. current meds (ASA, Amiodarone, Lopressor)
-Encourage use of IS
-Wean off of O2 as tolerated
-OOB into chair/Ambulate
Assessment / Plan
-
Assessment:
S/P Right mini thoracotomy with right common femoral artery and vein cannulation/ Radical mitral valve repair (28 mm band annuloplasty, cleft closure at P1-P2, P2-P3, placement of [place]-Alexis cords to the posterior leaflet x 2 and to the anterior
leaflet at A2 x 2), by Dr. Curry, 12/27/23, pod#1
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
-Mod pulm HTN
-LVEF 55-60% per intraop LEONARDO
-Acute on chronic diastolic CHF
-HTN
-HLD
-Osteoporosis
-Arthritis
-Neuropathy
-Chronic back pain/sciatica s/p steroid injections
-Scleroderma
-Vit D deficiency
-Glaucoma
-Cataracts S/P cataracts with lens implants
-S/P thyroid nodule needle biopsy, 10/2023
-S/P R TKR, 06/26/21
-S/P R inguinal herniorrhaphy
-S/P Partial hysterectomy
-S/P Repair of left wrist fx with retained hardware
-S/P 4-5 teeth extractions with implants
-Acute postop blood loss/Anemia on chronic anemia (stable without blood transfusion)
-Acute postop atelectasis
-Acute postop metabolic acidosis
-Acute postop hypovolemia with subsequent hypervolemia
Discussed patient care with: Cardiology, Nursing, Respiratory Therapy, Pharmacy and Care Team
Subjective
Procedure
S/P Right mini thoracotomy with right common femoral artery and vein cannulation/ Radical mitral valve repair (28 mm band annuloplasty, cleft closure at P1-P2, P2-P3, placement of [place]-Alexis cords to the posterior leaflet x 2 and to the anterior
leaflet at A2 x 2), by Dr. Curry, 12/27/23
-
Date of Service: December 28, 2023
Pt c/o incisional pain, otherwise feels well
Objective Data
-
Lab Results
12/28/23 03:07
12/28/23 03:07
PT 16.1 Sec (11.4-14.6) H 12/27/23 11:47
INR 1.31 12/27/23 11:47
APTT 31.3 Sec (23.4-35.0) 12/27/23 11:47
Vital Signs
Vital Signs
Temp Pulse Resp BP Pulse Ox
100.4 F H 67 29 141/66 97
12/28/23 03:00 12/28/23 03:00 12/28/23 03:00 12/28/23 03:00 12/28/23 03:00
CT Intake/Output/Weight
12/27/23 12/27/23 12/28/23
06:59 18:59 06:59
Intake Total 631.8 / 728.1 96.3 / 728.1
Output Total 655 / 1035 380 / 1035
Balance -23.2 / -306.9 -283.7 / -306.9
SaO2: 97 (RA)
Physical Exam
-
General: Awake, Oriented and AOx3
Cardiovascular: Regular rate & rhythm, No Murmurs, No Rub and No Gallop
Respiratory: Decreased Breath Sounds (at bases, otherwise clear)
Sternum: Stable
Incision: Clean, Dry, Intact and Dressing Intact
Extremities: Other (+trace edema)
Data Reviewed
-
Lab Results: Results Reviewed
Medications: Active Meds Reviewed
Chest X-Ray: Report Reviewed and Image Reviewed
ECG: Report Reviewed and Image Reviewed
--- NOTE | 2023-12-28 04:00 | PTCARENOTE ---
assessment remains unchanged. VSS. AM labs collected and sent. AM EKG performed. a-line discontinued per CVPA. CT drainage and U/O WNL.
[2023-12-28] MEDS: FLEXERIL 5 MG PO ×2 (04:28→21:08)
[2023-12-28 04:53] LABS: Glucose - Point of Care 101 mg/dl (70-99)
[2023-12-28] MEDS: TYLENOL 1000 MG PO ×3 (06:28→21:02)
[2023-12-28 07:14] LABS: Glucose - Point of Care 86 mg/dl (70-99)
--- NOTE | 2023-12-28 07:38 | W.PN.INTV ---
Today's Communication / Plan
Recommendations
Pressors weaned
Insulin drip will be weaned later
Discontinue arterial line
Discontinue Victoria
Monitor temporary pacer
Increase activity
Outpatient pulmonary follow-up of nodules
Transfer to telemetry-service sprinkler helper will sign off-please call with pulmonary questions
Assessment
-
83-year-old female with a history of mitral valve insufficiency, hypertension, hyperlipidemia as well as osteoporosis with acute on top of chronic congestive heart failure had symptomatic mitral valve insufficiency and underwent minithoracotomy with
radical mitral valve repair-service sprinkler helper consulted for postoperative ventilator/critical care management 12/27/2023.
Assessment
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
Status post right minithoracotomy-radical mitral valve repair-Dr. Curry-12/27/2023
Mild anemia-hemoglobin 9.9
Incidental pulmonary nodules noted on CT chest-sub-5 mm right upper lobe
Conditions present prior to admission:
Hypertension.
Hyperlipidemia.
Osteoporosis.
Glaucoma.
Mitral valve insufficiency status post radical repair 12/2023.
Right TKR 2020
Plan
Tolerated extubation
Wean FiO2
Encourage incentive spirometry
Increase activity
Aspiration precautions
Pulmonary artery catheter and arterial line will be removed
Pressors have been weaned
Continue to monitor chest tube output
Follow hemoglobin
Continue to follow platelet count and coags
Transfuse blood product as needed
CT surgery following chest tubes as well
Follow blood sugar
Insulin supplementation continues as needed
Early nutrition
Early mobilization
DVT prophylaxis
Patient will be transferred to telemetry phase-call pulmonary if respiratory issues arise
Reviewed the patient's pertinent medical records including radiographs, microbiology, laboratory evaluations, and discussion with primary team, and critical care nursing.
Consider outpatient pulmonary follow-up of incidental pulmonary nodules-recommend repeat CT chest in 1 year
Reviewed the patient's pertinent medical records including radiographs, microbiology, laboratory evaluations, and discussion with primary team and critical care nursing.
Diagnostic data:
Chest x-ray 12/27/2023-left basilar atelectasis
CT chest abdomen and pelvis 12/22/2023-no acute pathology within the chest abdomen or pelvis, couple questionable sub-5 mm nodules right upper lobe
Cardiac catheterization 12/07/2023-the right and left heart, RA 15, RV 56/14, PA 55/25, PCWP 26 with V waves up to 50, LVEDP 24, no significant coronary artery disease
Subjective Dataa
Subjective Data
Date of Service:
Date of Service: December 28, 2023
Chief Complaint: Gambling Floor Supervisor Follow Up, Pulmonary Follow Up and Vent Management Follow Up
Subjective:
Tolerated extubation, no complaints of shortness of breath, some pain from incision, nursing aware and will be providing analgesia
Review of Systems
General: Other ( per HPI)
Objective Data
Data Reviewed
Vital Signs / I&O / Oxygen:
Vital Signs
Temp Pulse Resp BP Pulse Ox
98.4 F 69 16 130/61 96
12/28/23 07:34 12/28/23 07:30 12/28/23 07:34 12/28/23 07:00 12/28/23 07:34
Intake and Output
12/27/23 12/28/23 12/29/23
06:59 06:59 06:59
Intake Total 760.2 / 770.5 20.6 / 20.6
Output Total 1145 / 1200 55 / 55
Balance -384.8 / -429.5 -34.4 / -34.4
SaO2 96
Nasal Cannula flow liters per 2
minute
Physical Exam
General: Respiratory Distress (n) and Comfortable
HEENT: Normocephalic, Anicteric and Moist Mucous Membranes
Cardiovascular: Regular Rhythm
Respiratory: Wheeze (n), Crackles, Rhonchi (n), Non-Labored Respirations, Accessory Resp Muscle Use (n) and Stridor (n)
GI: Soft, Non Distended and Non Tender
Neurology: Awake, Alert and No Motor Deficits
Skin: Warm, Good Color, Cyanosis (n), Jaundice (n) and Rash (n)
Labs/Micro/Reports
Lab Data
12/28/23 03:07
12/28/23 03:07
Laboratory Results
12/27/23 12/27/23 12/27/23
11:46 11:47 15:33
PT 16.1 H
INR 1.31
APTT 31.3
pH 7.29 L 7.37
pCO2 47 H 42 H
pO2 128 H 118 H
HCO3 22.6 24.3
O2 Delivery Level Not Reportable
--- NOTE | 2023-12-28 07:55 | PTCARENOTE ---
pt received from previous RN, oriented, OOB in chair. SR on the monitor, HR 60s. V wires in place, VVI 50/8. SBP 130s. palpable pulses, no edema. pt on RA, 94-96% POX. lungs diminished. IS encouraged. CT x2, no air leak or crepitus noted. pt abdomen
s/n, denies n/v. diet tolerated well. Victoria in place, clear yellow urine. R lateral incisions FRANCES, approximated. CT dressing intact. RIJ cordis maintained. PIV. insulin gtt running as ordered. see worklist for VS, I&O, and assessment.
[2023-12-28] MEDS: LIDOCAINE 4% PATCH 1 PATCH TOPICAL (08:04)
[2023-12-28] MEDS: LOW STRENGTH ASPIRIN 81 MG PO (08:05)
[2023-12-28] MEDS: PROTONIX 40 MG PO (08:05)
[2023-12-28] MEDS: SENOKOT-S 1 TABLET PO ×2 (08:05→19:52)
[2023-12-28] MEDS: LOPRESSOR 12.5 MG PO ×2 (08:05→19:52)
[2023-12-28] MEDS: PACERONE 200 MG PO ×3 (08:05→21:02)
[2023-12-28] MEDS: NEURONTIN 100 MG PO ×3 (08:05→21:02)
[2023-12-28] MEDS: BACTROBAN 2% OINTMENT 1 APPLIC NASAL ×2 (08:11→19:53)
[2023-12-28 09:05] LABS: Glucose - Point of Care 89 mg/dl (70-99)
--- NOTE | 2023-12-28 10:26 | PTCARENOTE ---
Victoria dc'd as ordered, V wire insulated. pt placed back to bed. [facility] at bedside, R pleural CT dc'd by [facility], Mediastinal CT remains to suction. dressing c/d/i.
[2023-12-28 11:26] LABS: Glucose - Point of Care 114 mg/dl (70-99)
--- NOTE | 2023-12-28 11:30 | W.PN.ANS.POP ---
Anesthesia Post Operative
- Anesthesia Post Op Note
Vital Signs Stable-See Nursing Note: Yes
Airway Patent: Yes
Adequate Pain Control: Yes
Change in Mental Status: No
Current Postoperative Nausea & Vomiting: No
Anesthesia Complications: No
General Anesthetic Recall: No
Unplanned Admission: No
Post Op Hydration Adequate: Yes
[2023-12-28] MEDS: NSS 500 IV (12:12)
[2023-12-28 12:17] LABS: Glucose - Point of Care 109 mg/dl (70-99)
--- NOTE | 2023-12-28 12:39 | PTCARENOTE ---
Assumed care of patient. Patient is alert and oriented x4, pleasant. In/out of sleep. Denies pain/discomfort. NSR. HR 60s. Audible heart tones. BP 132/72. Palpable pulses. No edema. RA. Oxygen saturation 97%. CT maintained to -20cm wall suction with
small serosanguineous drainage. Abdomen round, slightly distended. Due to void by 1400. Per patient, denies passing gas. R lateral chest incision is approximated with surgical adhesive and open to air. R chest incision is approximated with surgical
adhesive and open to air. R groin incision is approximated with surgical adhesive and open to air. Assist x1 from chair to the bed. Will continue to monitor.
--- NOTE | 2023-12-28 14:10 | W.PN.CARDCBS ---
Addendum entered and electronically signed by Stephany Caceres MD 12/28/23 15:54:
I saw and examined the patient.
The Lye Boiler's note was reviewed and I agree with the note.
Comment: Overall patient is doing well and resting comfortably out of bed in a chair. Continues to complain of some chest discomfort especially pleuritic in nature.
Vital signs and lab work reviewed. She is off pressors. Her Victoria and arterial line have been removed. She is satting well on room air.
Recommendations:
1. Continue with postoperative supportive care. Patient is postop day 1 status post minithoracotomy and MVR on December 27, 2023.
2. Increasing physical activity as tolerated. PT/OT.
3. Close monitoring of blood counts and renal function. Electrolyte repletion as needed.
4. No significant events on telemetry. ECG with probable pericarditis.
Stephany Caceres MD, [facility], [facility]
Original Note:
Today's Communication / Plan
-
Off pressors and insulin
Victoria and A-line removed
On room air
Increase level of activity as tolerated
Continue usual postop care
Impression / Plan
-
PCP: Dr. Dozier
Sales Contracts Analyst: Dr. Dawson
Impression:
Severe MR
s/p mini thoracotomy mitral valve repair (28 mm band annuloplasty, cleft closure at P1-P2, P2-P3, placement of [place]-Alexis cords to the posterior leaflet x 2 and to the anterior leaflet at A2 x 2) 12/27/2023
Glaucoma
Thyroid nodules
LEONARDO 11/26/2023: EF 55-60%, bileaflet prolapse located predominately at P2/P3 and A2, posterior leaflet with possible torn chord, severe eccentric MR, mean gradient 4 mmHg, moderate TR, systolic flow reversal in pulmonary veins
Plan:
-Patient had increased SOB for approximately 6 months and was found to have severe MR.
-Is now s/p mini thoracotomy and MVR 12/27/2023
-Doing well POD1; sitting up in chair
-No blood products with stable Hgb 10.0
-CXR with bilateral segmental atelectasis otherwise unremarkable. Continue incentive spirometry
-Post op remains in sinus rhythm. Postop EKG day [address] elevation consistent with possible pericarditis; denies chest pain and no rub
-Weaned off pressors and insulin. Blood pressure stable
-Arterial line and Victoria removed.
-Continue aspirin, amiodarone, Lopressor
-Continue post op care
-Wean O2 as able.
Progress Note - Sales Contracts Analyst
Subjective
Date of Service: December 28, 2023
Patient seen and examined. Patient feeling well. Denies chest pain, shortness of breath, dizziness.
Objective
Labs:
12/28/23 03:07
12/28/23 03:07
Labs
Hgb 10.0 g/dL (12.0-16.0) L 12/28/23 03:07
Hct 29.7 % (37.0-47.0) L 12/28/23 03:07
Plt Count 211 10^3/uL (130-400) 12/28/23 03:07
PT 16.1 Sec (11.4-14.6) H 12/27/23 11:47
INR 1.31 12/27/23 11:47
APTT 31.3 Sec (23.4-35.0) 12/27/23 11:47
Sodium 136 mmol/L (135-145) 12/28/23 03:07
Potassium 4.3 mmol/L (3.5-5.1) 12/28/23 03:07
BUN 28 mg/dl (7-17) H 12/28/23 03:07
Creatinine 0.6 mg/dL (0.6-1.0) 12/28/23 03:07
Glucose 105 mg/dl (70-99) H 12/28/23 03:07
Vital Signs and I&O:
Vital Signs
Temp Pulse Resp BP Pulse Ox
98.3 F 65 16 132/72 96
12/28/23 12:00 12/28/23 12:14 12/28/23 12:00 12/28/23 12:14 12/28/23 12:14
Vital Signs
Temp Pulse Resp BP Pulse Ox
98.3 F 65 16 132/72 96
12/28/23 12:00 12/28/23 12:14 12/28/23 12:00 12/28/23 12:14 12/28/23 12:14
Intake & Output
12/26/23 12/27/23 12/28/23 12/29/23
06:59 06:59 06:59 06:59
Intake Total 760.2 / 770.5 531.5 / 531.5
Output Total 1145 / 1200 145 / 145
Balance -384.8 / -429.5 386.5 / 386.5
Physical Exam
Physical Exam
GEN: No distress, awake, Ox3; sitting up in chair
HEENT: supple, anicteric, mmm
LUNGS: CTA, no wheezes/rales; on room air
CV: Reg, S1/S2, no murmur, rubs or gallops
Chest: Right minithoracotomy incision well-approximated without drainage or evidence of infection
ABD: soft, BS+, NT/ND
EXT: No edema, clubbing or cyanosis
NEURO: Gross non-focal
SKIN: No rash, warm, dry, pink
--- NOTE | 2023-12-28 15:42 | PTCARENOTE ---
Vital signs stable. NSR. HR 60s. BP 139/64. RIJ cordis maintained with KVO. PIV maintained. RA. Oxygen saturation 97%. CT maintained to -20cm wall suction with small serosanguineous drainage. Patient reclining in chair, does not want to try to void
at this time, no urge. Bladder scanned 214cc. Denies pain/discomfort. Daughter at bedside. Will continue to monitor.
--- NOTE | 2023-12-28 19:00 | PTCARENOTE ---
report received from previous RN, walking rounds done. pt in chair, AAOX4. pt denies any pain. VSS. NSR on monitor, HR 60's-70's. epicardial v.wires intact and insulated. POX 97% on room air. CT x1 intact to -20cm wall suction, drainage WNL, no air
leak present. RIJ cordis intact w KVO infusing. all surgical sites stable. see worklist for full assessment, VS, and interventions. pt resting comfortably.
[2023-12-28 21:12] LABS: Glucose - Point of Care 155 mg/dl (70-99)
[2023-12-28] MEDS: XALATAN OPHTHALMIC SOLUTION OPHTH (22:55)
--- NOTE | 2023-12-28 23:00 | PTCARENOTE ---
no changes in assessment, pt VSS. NSR. RA. RIJ cordis remains intact. CT output WNL. all surgical sites stable. pt sleeping between care.
[2023-12-29] VITALS (11 sets, daily range): BP systolic 93–119; BP diastolic 54–88; PULSE 62; O2SAT 97–98; BMI 23.9
--- NOTE | 2023-12-29 03:00 | PTCARENOTE ---
pt VSS, no changes in assessment. NSR. RA. RIJ cordis remains intact. CT output WNL. all surgical sites stable. AM labs drawn and sent. pt sleeping between care.
[2023-12-29 04:04] LABS: Hematocrit 28.5 % (37.0-47.0); Hemoglobin 9.6 g/dL (12.0-16.0); Mean Corp Hgb Conc. 33.7 g/dL (33.0-37.0); Mean Corpuscular Hgb 32.9 pg (27.0-31.0); Mean Corpuscular Volume 97.6 fL (81.0-99.0); Mean Platelet Volume 11.4 fL (7.4-10.4); Platelet Count 187 10^3/uL (130-400); Red Blood Cell Count 2.92 10^6/uL (4.20-5.40); Red Cell Dist. Width 13.1 % (11.5-14.5); White Blood Cell Count 16.6 10^3/uL (4.8-10.8)
[2023-12-29 04:25] LABS: Blood Urea Nitrogen 33 mg/dl (7-17); Calcium 9.1 mg/dl (8.4-10.2); Carbon Dioxide 25 mmol/L (22-30); Chloride 104 mmol/L (98-107); Estimated Creatinine Clearance 48 ml/min; Glucose 145 mg/dl (70-99); Magnesium 2.4 mg/dl (1.6-2.3); Potassium 4.7 mmol/L (3.5-5.1); Sodium 131 mmol/L (135-145); eGFR > 60.00
--- NOTE | 2023-12-29 05:45 | W.PN.CT ---
Today's Communication / Plan
-
Plan:
-No major issues overnight. Hemodynamically and neurologically intact
-No drips
-Consider d/c of chest tube: med 30/140
-Maintain cordis another day
-Monitor temporary pacer (will cut prior to d/c home)
-Cont. current meds (ASA, Amiodarone, Lopressor, Lasix)
-Monitor hyponatremia, 131. Lasix today, fluid restriction
-Encourage use of IS
-Wean off of O2 as tolerated
-OOB into chair/Ambulate
Assessment / Plan
-
Assessment:
S/P Right mini thoracotomy with right common femoral artery and vein cannulation/ Radical mitral valve repair (28 mm band annuloplasty, cleft closure at P1-P2, P2-P3, placement of [place]-Alexis cords to the posterior leaflet x 2 and to the anterior
leaflet at A2 x 2), by Dr. Curry, 12/27/23, pod#2
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
-Mod pulm HTN
-LVEF 55-60% per intraop LEONARDO
-Acute on chronic diastolic CHF
-HTN
-HLD
-Osteoporosis
-Arthritis
-Neuropathy
-Chronic back pain/sciatica s/p steroid injections
-Scleroderma
-Vit D deficiency
-Glaucoma
-Cataracts S/P cataracts with lens implants
-S/P thyroid nodule needle biopsy, 10/2023
-S/P R TKR, 06/26/21
-S/P R inguinal herniorrhaphy
-S/P Partial hysterectomy
-S/P Repair of left wrist fx with retained hardware
-S/P 4-5 teeth extractions with implants
-Acute postop blood loss/Anemia on chronic anemia (stable without blood transfusion)
-Acute postop atelectasis
-Acute postop metabolic acidosis
-Acute postop hypovolemia with subsequent hypervolemia
-Acute postop hyponatremia, 131
Discussed patient care with: Cardiology, Nursing, Respiratory Therapy, Pharmacy and Care Team
Subjective
Procedure
S/P Right mini thoracotomy with right common femoral artery and vein cannulation/ Radical mitral valve repair (28 mm band annuloplasty, cleft closure at P1-P2, P2-P3, placement of [place]is cords to the posterior leaflet x 2 and to the anterior
leaflet at A2 x 2), by Dr. Curry, 12/27/23
-
Date of Service: December 29, 2023
Pt c/o pleuritic chest pain, otherwise feels well
Objective Data
-
Lab Results
12/29/23 03:37
12/29/23 03:37
PT 16.1 Sec (11.4-14.6) H 12/27/23 11:47
INR 1.31 12/27/23 11:47
APTT 31.3 Sec (23.4-35.0) 12/27/23 11:47
Vital Signs
Vital Signs
Temp Pulse Resp BP Pulse Ox
98.1 F 66 17 106/61 97
12/29/23 03:55 12/29/23 03:55 12/29/23 03:55 12/29/23 03:55 12/29/23 03:55
CT Intake/Output/Weight
12/28/23 12/28/23 12/29/23
06:59 18:59 06:59
Intake Total 128.4 / 770.5 841.5 / 1171.5 330 / 1171.5
Output Total 490 / 1200 480 / 485 5 / 485
Balance -361.6 / -429.5 361.5 / 686.5 325 / 686.5
SaO2: 97 (RA)
Physical Exam
-
General: Awake, Oriented and AOx3
Cardiovascular: Regular rate & rhythm, No Murmurs, No Rub and No Gallop
Respiratory: Decreased Breath Sounds (at bases, otherwise clear)
Sternum: Stable
Incision: Clean, Dry, Intact and Dressing Intact
Extremities: Other (trace edema)
Data Reviewed
-
Lab Results: Results Reviewed
Medications: Active Meds Reviewed
Chest X-Ray: Report Reviewed and Image Reviewed
ECG: Report Reviewed and Image Reviewed
[2023-12-29] MEDS: TYLENOL 1000 MG PO ×3 (06:14→20:59)
--- NOTE | 2023-12-29 08:00 | PTCARENOTE ---
pt received from previous RN, oriented, OOB in chair. SR on the monitor, HR 60s-70s. V wires insulated. SBP 100s. palpable pulses, no edema. pt on RA, 95% POX. lungs diminished. IS encouraged. CT x1, no air leak or crepitus noted. pt abdomen s/n,
denies n/v. diet tolerated well.ambulates to bathroom w/ stand by assist to void. R lateral incisions GREIGE MENDER, approximated. CT dressing intact. RIJ cordis maintained. PIV. see worklist for VS, I&O, and assessment.
[2023-12-29] MEDS: SENOKOT-S 1 TABLET PO ×2 (08:16→20:01)
[2023-12-29] MEDS: LOPRESSOR 12.5 MG PO ×2 (08:16→20:01)
[2023-12-29] MEDS: LOW STRENGTH ASPIRIN 81 MG PO (08:16)
[2023-12-29] MEDS: BACTROBAN 2% OINTMENT 1 APPLIC NASAL ×2 (08:16→20:02)
[2023-12-29] MEDS: PROTONIX 40 MG PO (08:16)
[2023-12-29] MEDS: LIDOCAINE 4% PATCH 1 PATCH TOPICAL (08:17)
[2023-12-29] MEDS: LASIX 40 MG IV (08:17)
[2023-12-29] MEDS: PACERONE 200 MG PO ×3 (08:17→20:58)
[2023-12-29] MEDS: NEURONTIN 100 MG PO ×3 (08:17→20:59)
--- NOTE | 2023-12-29 10:00 | PTCARENOTE ---
pt placed back to bed, CT dc'd by ELECTRIC REFRIGERATOR SERVICER, dressing c/d/i. pt OOB to chair for breakfast. son at bedside.
--- NOTE | 2023-12-29 12:00 | PTCARENOTE ---
pt VSS, no changes in assessment. ambulating in room, voids. OOB in chair for lunch.
--- NOTE | 2023-12-29 12:07 | CM ---
Reviewed chart. Met with Mrs. Kim to review discharge plans. She states she is feeling well and maybe able to go home soon. She states prior to admission she resides alone in a one story home with three steps to enter. She states prior to
admission she was independent with ambulation and adls. She states she does not have any DME in the home. She states she has a daughter, son and cousin who are planning on staying three days each with her. We reviewed a home visit by the
Cardiothoracic Transitional Care Nurse. She is agreeable to a home visit. Medical work-up in progress. The discharge plan is to return home with daughter, son and cousin taking turns staying three days each with her and a home visit by the
Cardiothoracic Transitional Care Nurse when medically stable.
[2023-12-29] MEDS: NSS IV (14:29)
--- NOTE | 2023-12-29 14:48 | W.PN.CARDCBS ---
Today's Communication / Plan
-
Plan:
-Patient had increased SOB for approximately 6 months and was found to have severe MR. Patient is postop day 1 status post minithoracotomy and MVR on December 27, 2023.
-Cont to monitor blood counts and renal function. Lyte repletion as needed.
-Chest tubes/drains dc'd with significant improvement in chest pain.
-Encourage incentive spirometry
Impression / Plan
-
PCP: Dr. Dozier
A R Collections Rep: Dr. Dawson
Impression:
Severe MR
s/p mini thoracotomy mitral valve repair (28 mm band annuloplasty, cleft closure at P1-P2, P2-P3, placement of [place]-Alexis cords to the posterior leaflet x 2 and to the anterior leaflet at A2 x 2) 12/27/2023
Glaucoma
Thyroid nodules
LEONARDO 11/26/2023: EF 55-60%, bileaflet prolapse located predominately at P2/P3 and A2, posterior leaflet with possible torn chord, severe eccentric MR, mean gradient 4 mmHg, moderate TR, systolic flow reversal in pulmonary veins
Plan:
-Patient had increased SOB for approximately 6 months and was found to have severe MR. Patient is postop day 1 status post minithoracotomy and MVR on December 27, 2023.
-Cont to monitor blood counts and renal function. Lyte repletion as needed.
-Chest tubes/drains dc'd with significant improvement in chest pain.
-Encourage incentive spirometry
Progress Note - A R Collections Rep
Subjective
Date of Service: December 29, 2023
Chest pain improved. OOB in chair
Objective
Labs:
12/29/23 03:37
12/29/23 03:37
Labs
Hgb 9.6 g/dL (12.0-16.0) L 12/29/23 03:37
Hct 28.5 % (37.0-47.0) L 12/29/23 03:37
Plt Count 187 10^3/uL (130-400) 12/29/23 03:37
PT 16.1 Sec (11.4-14.6) H 12/27/23 11:47
INR 1.31 12/27/23 11:47
APTT 31.3 Sec (23.4-35.0) 12/27/23 11:47
Sodium 131 mmol/L (135-145) L 12/29/23 03:37
Potassium 4.7 mmol/L (3.5-5.1) 12/29/23 03:37
BUN 33 mg/dl (7-17) H 12/29/23 03:37
Creatinine 0.7 mg/dL (0.6-1.0) 12/29/23 03:37
Glucose 145 mg/dl (70-99) H 12/29/23 03:37
Vital Signs and I&O:
Vital Signs
Temp Pulse Resp BP Pulse Ox
97.7 F 61 18 107/59 98
12/29/23 08:00 12/29/23 13:00 12/29/23 11:47 12/29/23 12:36 12/29/23 12:36
Vital Signs
Temp Pulse Resp BP Pulse Ox
97.7 F 61 18 107/59 98
12/29/23 08:00 12/29/23 13:00 12/29/23 11:47 12/29/23 12:36 12/29/23 12:36
Intake & Output
12/27/23 12/28/23 12/29/23 12/30/23
06:59 06:59 06:59 06:59
Intake Total 760.2 / 770.5 1201.5 / 1201.5
Output Total 1145 / 1200 935 / 935 220 / 220
Balance -384.8 / -429.5 266.5 / 266.5 -190 / -190
Physical Exam
Physical Exam
GEN: No distress, awake, Ox3; sitting up in chair
HEENT: supple, anicteric, mmm
LUNGS: CTA, no wheezes/rales; on room air
CV: Reg, S1/S2, no murmur, rubs or gallops
Chest: Right minithoracotomy incision well-approximated without drainage or evidence of infection
ABD: soft, BS+, NT/ND
EXT: No edema, clubbing or cyanosis
NEURO: Gross non-focal
SKIN: No rash, warm, dry, pink
--- NOTE | 2023-12-29 16:00 | PTCARENOTE ---
pt VSS, no changes in assessment. OOB in chair. ambulates to bathroom to void. oral hygiene performed.
--- NOTE | 2023-12-29 20:20 | PTCARENOTE ---
Assumed care of patient at 1900. Patient found OOB to chair at time of assessment. Patient is AOx4, follows commands appropriately, moves all extremities. Patient is [place] and wears hearing aids bilaterally. Lung sounds are diminished in the bases, on
RA with saO2 at 96%. Heart sounds have a regular rate and rhythm, patient is NSR on the monitor, normal palpable pulses, some trace generalized anasarca is noted. V wires are present and insulated. Patient has soft nontender abdomen with active BS
throughout all four quadrants no post op BM reported. Patient has two incisions on the R lateral chest 2/2 surgery that are approx surg adhesive FRANCES, an ABD dressing over CT wounds that is CDI. Patient has R IJ cordis receiving KVO and R AC PIV for
intermittent infusion. VSS. Patient ambulated in barrett to IVU desk and back. Patient is stable.
[2023-12-29] MEDS: XALATAN OPHTHALMIC SOLUTION 1 DROP OPHTH (21:02)
--- NOTE | 2023-12-29 23:00 | PTCARENOTE ---
report received from previous RN, walking rounds done. pt asleep. VSS. NSR, HR 60's. room air. RIJ cordis intact w KVO infusing. all surgical sites stable. see worklist for full assessment, VS, and interventions.
[2023-12-30] VITALS (8 sets, daily range): BP systolic 78–111; BP diastolic 42–55; PULSE 55; O2SAT 97–100; BMI 23.8
[2023-12-30 03:47] LABS: Hematocrit 26.6 % (37.0-47.0); Hemoglobin 9.1 g/dL (12.0-16.0); Mean Corp Hgb Conc. 34.2 g/dL (33.0-37.0); Mean Corpuscular Hgb 33.5 pg (27.0-31.0); Mean Corpuscular Volume 97.8 fL (81.0-99.0); Platelet Count 152 10^3/uL (130-400); Red Blood Cell Count 2.72 10^6/uL (4.20-5.40); Red Cell Dist. Width 12.9 % (11.5-14.5); White Blood Cell Count 11.4 10^3/uL (4.8-10.8)
[2023-12-30 04:27] LABS: Blood Urea Nitrogen 43 mg/dl (7-17); Calcium 8.8 mg/dl (8.4-10.2); Carbon Dioxide 26 mmol/L (22-30); Chloride 99 mmol/L (98-107); Estimated Creatinine Clearance 42 ml/min; Glucose 107 mg/dl (70-99); Magnesium 2.2 mg/dl (1.6-2.3); Potassium 4.1 mmol/L (3.5-5.1); Sodium 131 mmol/L (135-145); eGFR > 60.00
[2023-12-30] MEDS: TYLENOL 1000 MG PO ×2 (06:11→14:31)
--- NOTE | 2023-12-30 06:35 | W.PN.CT ---
Today's Communication / Plan
-
-pod #3
-no issues overnight, no complaints, sleeping, comfortable
-diuresed with 40 iv Lasix on 12/28
-on fluid restriction for hyponatremia
-BMP pending
-Echo today for postop eval of MV
-cont. current meds (ASA, Amiodarone, Lopressor, Lasix)
-weaned off O2 - pOx 96% on RA
-maintain pw (will cut prior to d/c home)
-encourage IS, OOB, ambulate
Assessment / Plan
-
Assessment:
S/P Right mini thoracotomy with right common femoral artery and vein cannulation/ Radical mitral valve repair (28 mm band annuloplasty, cleft closure at P1-P2, P2-P3, placement of [place]-Alexis cords to the posterior leaflet x 2 and to the anterior
leaflet at A2 x 2), by Dr. Curry, 12/27/23, pod#3
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
-Mod pulm HTN
-LVEF 55-60% per intraop LEONARDO
-Acute on chronic diastolic CHF
-HTN
-HLD
-Osteoporosis
-Arthritis
-Neuropathy
-Chronic back pain/sciatica s/p steroid injections
-Scleroderma
-Vit D deficiency
-Glaucoma
-Cataracts S/P cataracts with lens implants
-S/P thyroid nodule needle biopsy, 10/2023
-S/P R TKR, 06/26/21
-S/P R inguinal herniorrhaphy
-S/P Partial hysterectomy
-S/P Repair of left wrist fx with retained hardware
-S/P 4-5 teeth extractions with implants
-Acute postop blood loss/Anemia on chronic anemia (stable without blood transfusion)
-Acute postop atelectasis
-Acute postop metabolic acidosis
-Acute postop hypovolemia with subsequent hypervolemia
-Acute postop hyponatremia, 131
Discussed patient care with: Nursing and Care Team
Subjective
Procedure
S/P Right mini thoracotomy with right common femoral artery and vein cannulation/ Radical mitral valve repair (28 mm band annuloplasty, cleft closure at P1-P2, P2-P3, placement of [place]-Alexis cords to the posterior leaflet x 2 and to the anterior
leaflet at A2 x 2), by Dr. Curry, 12/27/23
-
Date of Service: December 30, 2023
Objective Data
-
PT 16.1 Sec (11.4-14.6) H 12/27/23 11:47
INR 1.31 12/27/23 11:47
APTT 31.3 Sec (23.4-35.0) 12/27/23 11:47
Vital Signs
Vital Signs
Temp Pulse Resp BP Pulse Ox
98.1 F 62 17 102/70 96
12/29/23 23:52 12/29/23 23:52 12/29/23 23:52 12/29/23 23:52 12/29/23 23:52
CT Intake/Output/Weight
12/29/23 12/29/23 12/30/23
06:59 18:59 06:59
Intake Total 360 / 1201.5 60
Output Total 455 / 935 220 / 220
Balance -95 / 266.5 -160 / -150 10 / -150
SaO2: 96
Physical Exam
-
General: Awake, Oriented and AOx3
Cardiovascular: Regular rate & rhythm, No Murmurs, No Rub and No Gallop
Respiratory: Decreased Breath Sounds (at bases, otherwise clear)
Sternum: Stable
Incision: Clean, Dry, Intact and Dressing Intact
Extremities: Other (trace edema)
Data Reviewed
-
Lab Results: Results Reviewed
Medications: Active Meds Reviewed
Chest X-Ray: Report Reviewed and Image Reviewed
ECG: Report Reviewed and Image Reviewed
--- NOTE | 2023-12-30 07:48 | PTCARENOTE ---
Patient received from nightshift nurse. Patient is alert and oriented x4, pleasant. Denies pain/discomfort. SB with first degree heart block. HR 50s. BP 99/53. RIJ cordis maintained with KVO. PIV maintained. Palpable pulses. No edema. RA. Oxygen
saturation 97%. Upon auscultation, lung sounds diminished at the bases. IS 750. Abdomen round. +BS. Patient is passing gas, no BM yet but does not feel the need to go yet. Voids in BR. Standby assist to the BR. R groin incision is approximated with
surgical adhesive and open to air. R chest incision is approximated with surgical adhesive and open to air. R lateral chest incision is approximated with surgical adhesive and open to air. Plan for an ECHO this AM and potential discharge today.
[2023-12-30] MEDS: SENOKOT-S 1 TABLET PO (07:55)
[2023-12-30] MEDS: LOPRESSOR 12.5 MG PO (07:55)
[2023-12-30] MEDS: PACERONE 200 MG PO (07:55)
[2023-12-30] MEDS: NEURONTIN 100 MG PO (07:56)
[2023-12-30] MEDS: PROTONIX 40 MG PO (07:56)
[2023-12-30] MEDS: BACTROBAN 2% OINTMENT 1 APPLIC NASAL (07:56)
[2023-12-30] MEDS: LOW STRENGTH ASPIRIN 81 MG PO (07:56)
[2023-12-30] MEDS: LIDOCAINE 4% PATCH TOPICAL (08:14)
--- NOTE | 2023-12-30 09:10 | W.PN.CARDCBS ---
Today's Communication / Plan
-
Plan:
-Patient had increased SOB for approximately 6 months and was found to have severe MR. Patient is postop day 3 status post mini-thoracotomy and MVR on December 27, 2023.
-Stable blood counts and renal function. Lyte repletion as needed.
-Chest tubes/drains dc'd with significant improvement in chest pain yesterday.
-Encourage incentive spirometry.
-Diuresing well with Lasix. Otherwise continue current cardiac medications.
-Plan for repeat echocardiogram later today.
-Possible discharge later today. Outpt cardiac rehab.
Impression / Plan
-
PCP: Dr. Dozier
Bridal Consultant: Dr. Dawson
Impression:
Severe MR
s/p mini thoracotomy mitral valve repair (28 mm band annuloplasty, cleft closure at P1-P2, P2-P3, placement of [place]-Alexis cords to the posterior leaflet x 2 and to the anterior leaflet at A2 x 2) 12/27/2023
Glaucoma
Thyroid nodules
LEONARDO 11/26/2023: EF 55-60%, bileaflet prolapse located predominately at P2/P3 and A2, posterior leaflet with possible torn chord, severe eccentric MR, mean gradient 4 mmHg, moderate TR, systolic flow reversal in pulmonary veins
Plan:
-Patient had increased SOB for approximately 6 months and was found to have severe MR. Patient is postop day 3 status post mini-thoracotomy and MVR on December 27, 2023.
-Stable blood counts and renal function. Lyte repletion as needed.
-Chest tubes/drains dc'd with significant improvement in chest pain yesterday.
-Encourage incentive spirometry.
-Diuresing well with Lasix. Otherwise continue current cardiac medications.
-Plan for repeat echocardiogram later today.
-Possible discharge later today. Outpt cardiac rehab.
Progress Note - Bridal Consultant
Subjective
Date of Service: December 30, 2023
No signficant complaints
Objective
Labs:
12/30/23 03:26
12/30/23 03:27
Labs
Hgb 9.1 g/dL (12.0-16.0) L 12/30/23 03:26
Hct 26.6 % (37.0-47.0) L 12/30/23 03:26
Plt Count 152 10^3/uL (130-400) 12/30/23 03:26
PT 16.1 Sec (11.4-14.6) H 12/27/23 11:47
INR 1.31 12/27/23 11:47
APTT 31.3 Sec (23.4-35.0) 12/27/23 11:47
Sodium 131 mmol/L (135-145) L 12/30/23 03:27
Potassium 4.1 mmol/L (3.5-5.1) 12/30/23 03:27
BUN 43 mg/dl (7-17) H 12/30/23 03:27
Creatinine 0.8 mg/dL (0.6-1.0) 12/30/23 03:27
Glucose 107 mg/dl (70-99) H 12/30/23 03:27
Vital Signs and I&O:
Vital Signs
Temp Pulse Resp BP Pulse Ox
98.9 F 59 16 99/53 97
12/30/23 07:40 12/30/23 08:00 12/30/23 07:40 12/30/23 07:55 12/30/23 08:00
Vital Signs
Temp Pulse Resp BP Pulse Ox
98.9 F 59 16 99/53 97
12/30/23 07:40 12/30/23 08:00 12/30/23 07:40 12/30/23 07:55 12/30/23 08:00
Intake & Output
12/28/23 12/29/23 12/30/23 12/31/23
06:59 06:59 06:59 06:59
Intake Total 760.2 / 770.5 1201.5 / 1201.5 170 / 170 500 / 500
Output Total 1145 / 1200 935 / 935 570 / 570
Balance -384.8 / -429.5 266.5 / 266.5 -400 / -400 500 / 500
Physical Exam
Physical Exam
GEN: No distress, awake, Ox3; sitting up in chair
HEENT: supple, anicteric, mmm
LUNGS: CTA, no wheezes/rales; on room air
CV: Reg, S1/S2, no murmur, rubs or gallops
Chest: Right minithoracotomy incision well-approximated without drainage or evidence of infection
ABD: soft, BS+, NT/ND
EXT: No edema, clubbing or cyanosis
NEURO: Gross non-focal
SKIN: No rash, warm, dry, pink
--- NOTE | 2023-12-30 09:12 | W.DCSUMMARY ---
Discharge Summary
Discharge Data
Date of Admission: 12/27/23
Date of Discharge: 12/30/23
Total time spent discharging patient (in min): 33
-
Pending Results: No
Hospital Course
Primary care physician:
Dr. Manjit Torres
Outpatient mason helper:
Dr. Nilesh Dawson
Inpatient consultants:
DCA, set up mechanic coating machines
Procedures:
1. Radical mitral valve repair (28 mm band annuloplasty, cleft closure at P1-P2, P2-P3, placement of [place]-Alexis cords to the posterior leaflet x 2 and to the anterior leaflet at A2 x 2)
Primary Diagnosis:
1. 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
Secondary Diagnoses:
1.� Shortness of breath secondary to symptomatic mitral insufficiency
2.� Glaucoma
3.� Hypertension
4.� Hyperlipidemia
5.� Orthopedic issues
6.� Osteopenia/osteoporosis
7.� Acute on chronic congestive heart failure with LVEDP measuring 24 with a wedge pressure of 26 on cath, secondary to significant volume overload from mitral valve insufficiency
HPI: �83-year-old female who has known mitral valve insufficiency presents on 12/26 for an elective mitral valve repair with Dr. Curry.
Hospital course:
Patient was electively admitted for mitral valve repair on 12/26. She was extubated in the OR. She returned to the CVICU on insulin infusion and [place] was removed by 1800 on postop day #0. On 12/27 postop day #1, pleural chest tubes were
discontinued and insulin drip was discontinued. On 12/28 postop day 2 patient's mediastinal chest tube was removed and was diuresed with 40 mg of IV Lasix. On 12/29 postop day #3, lab values remained stable. Repeat two-view chest x-ray was stable.
Repeat echocardiogram showed stable LV function, no MR, and a mean gradient of 3 and patient was deemed stable for discharge. Prescriptions were sent to her preferred pharmacy and she expressed understanding.
Home medication changes:
See below
Discharge Plan
-
Patient Disposition: Home (Routine Discharge)
Discharge Diagnosis/Procedures: mitral regurgitation/Mitral Valve repair
Condition: Good
Diet: No restrictions
Activity: No strenuous activity
Driving Restrictions: Not until seen by your Dr
Bathing Restrictions: OK to Shower
Blood Work: BMP on Tuesday 01/02
Other Services: Cardiac Rehab
Specialty Instructions: Weigh Daily- Call MD for wt gain/loss 3 lbs overnight/5 lbs in 1 week
Activity Restrictions/Additional Instructions:
ACTIVITY:
-No strenuous activity: no heavy lifting, pushing, pulling anything over 15 pounds for one month
-continue to use stairs as tolerated
DRIVING RESTRICTIONS:
-No driving for one month or until approved by your surgeon
WOUND CARE:
-Shower daily. Use soap & water.
-No lotions, creams or powders on incision area.
DIET:
-continue a low fat/low cholesterol diet.
-IF you are diabetic, continue carb controlled diet.
CARDIAC REHAB:
-Please make appointment to start in 5-6 weeks with your local hospital program. (See Cardiac Rehabilitation Discharge Booklet).
SPECIALTY INSTRUCTIONS:
-Weigh yourself daily. Call your physician for any weight gain/loss of 3 lbs overnight or 5 lbs in one week.
-REPORT any clicking noise or uneven appearance of your sternum to your surgeon immediately.
-If you smoke, you are instructed to quit. The [place] smoking hotline phone number is [phone]
Referrals:
CT Transitional Care Nurse [Outside] - in one to two days
(
The Cardiothoracic Transitional Care Nurse will call you to set up a visit in 1-2 days.)
[facility]. Cardiac Rehab [Outside] - 02/03/24 1:00 pm
(Cardiac Rehab Orientation appointment is on 02/03/24 at 1:00 pm
The Cardiac Rehab gym is located on the first floor of the [facility] [place].)
Shelbi Kline PA-C [Specified Professional Personl] - 02/08/24 1:40 pm
Manjit Torres MD [Family Provider] - in four to six weeks (Please make an appointment in four to six weeks. )
Dannie Emanuel MD [Active] - in one to two months
(Pulmonary nodules
Dr. Emanuel or ENERGY INFRASTRUCTURE ENGINEER)
Viktor Curry MD [Active] - 01/27/24 1:15 pm
Prescriptions:
New
acetaminophen 325 mg Tablet
650 mg PO Q4HPRN PRN (Reason: mild pain,headache,temp >101F ) Qty: 0 0RF
aspirin [Children's Aspirin] 81 mg Tablet,Chewable
81 mg PO DAILY Qty: 0 0RF
metoprolol succinate [Toprol XL] 25 mg tablet extended release 24 hr
25 mg PO .nightly Qty: 60 1RF
furosemide [Lasix] 20 mg tablet
20 mg PO DAILY Qty: 3 0RF
potassium chloride 10 mEq tablet extended release
10 meq PO DAILY Qty: 3 0RF
Rx Instructions:
Take when taking lasix
Continued
latanoprost 0.005 % Drops
1 drp OPHTHALMIC (EYE) HS Qty: 0
Rx Instructions:
Each eye
multivitamin with folic acid [Tab-A-Dano] 1 TABLET tablet
1 tab PO DAILY
coenzyme Q10 [CoQ-10] 100 mg Capsule
300 mg PO DAILY
turmeric 400 mg Capsule
1,500 mg PO DAILY
Pravagen
1 cap PO DAILY
Discharge Orders:
Discharge Patient (As Directed); Ordered 12/30/23
Ordered By: Heena Messer
Care Plan Goals
Care Plan Goals:
Problem: Readiness for enhanced knowledge related to diagnosis and treatment plan
Goal: Understand your diagnosis and treatment plan needs, including medications if applicable.
Instructions: Know your diagnosis, underlying causes and treatment plan options, including medications if applicable. Consult with your health care team to learn about your diagnosis and treatment plan, including medications if applicable.
--- NOTE | 2023-12-30 11:13 | PTCARENOTE ---
Vital signs stable. Patient had an ECHO and a 2V CXR this AM. NSR/SB with first degree heart block. HR 50s-60s. BP 91/49. RA. Oxygen saturation 99%. Did stairs with CR. Patient had a BM late this AM as well. She is ambulating independently in her
room. Anticipating discharge later this afternoon.
[2023-12-30] MEDS: NSS IV (12:21)
--- NOTE | 2023-12-30 12:29 | CM ---
Reviewed chart. Met with Mrs. Kim to review discharge plans, She states she is feeling well and hoping to go home soon. Prior to admission she resides alone in a one story home with three steps to enter. Prior to admission she was
independent with ambulation and adls. Currently she ambulated 200 feet. We reviewed a home visit by the Cardiothoracic Transitional Care Nurse. She is agreeable to a home visit. She states her daughter, son and cousin are planning to stay with
her. Each one for three days to assist in her care if needed. Medical work-up in progress. The discharge plan is to return home with family support and a home visit by the Cardiothoracic Transitional Care Nurse when medically stable.
--- NOTE | 2023-12-30 15:33 | PTCARENOTE ---
Vital signs stable. NSR/SB with first degree heart block. HR 50s-60s. BP 102/50. RA. Oxygen saturation 97%. RIJ cordis discontinued per order and per protocol. Patient tolerated. New dressing applied. V wires cut with 2 RNs per order and per
protocol. Skin dry, intact. nuclear monitoring technician discontinued so patient can shower. Will continue to monitor.
--- NOTE | 2023-12-30 17:27 | PTCARENOTE ---
Patient showered and dressed into her own clothes with assistance. Patient given discharge instructions, medication list, last dose of medications, and educational packets. Answered patient's questions as well as her daughters. Patient and her
daughter packed up her belongings. PIV discontinued. Daughter carried the patient's belongings to the car and brought the car around front. Staff transported patient via wheelchair to the Critical access hospital.
== END 2023-12-30 17:43 | disposition home or self-care (01) | DRG 219 ==
LOC: CVICU 05:08
PROVIDERS: Nurse Practitioner; ADMITTING PHYSICIAN Thoracic Surgery (Cardiothoracic Vascular Surgery); CONSULT PHYSICIAN Internal Medicine Critical Care Medicine; FAMILY PHYSICIAN Internal Medicine
PROC: 02BG0ZZ Excision of Mitral Valve, Open Approach (ICD-10-PCS; 2023-12-27)
PROC: 5A1221Z Performance of Cardiac Output, Continuous (ICD-10-PCS; 2023-12-27)
PROC: 02UG0JZ Supplement Mitral Valve with Synthetic Substitute, Open Approach (ICD-10-PCS; 2023-12-27)
PROC: B245ZZ4 Ultrasonography of Left Heart, Transesophageal (ICD-10-PCS; 2023-12-27)
DX: I34.0 Nonrheumatic mitral (valve) insufficiency (principal); I50.33 Acute on chronic diastolic (congestive) heart failure; I51.1 Rupture of chordae tendineae, not elsewhere classified; I11.0 Hypertensive heart disease with heart failure; E78.5 Hyperlipidemia, unspecified; M81.0 Age-related osteoporosis without current pathological fracture; I27.20 Pulmonary hypertension, unspecified; H40.9 Unspecified glaucoma
CPT/HCPCS: 36415; 71045; 71046; 80048; 80053; 81003; 82248; 82330; 82565; 82805; 82947; 82962; 83036; 83735; 84132; 84302; 84520; 85014; 85018; 85025; 85027; 85049; 85610; 85730; 86850; 86900; 86901; 86920; 87070; 93005; 93306; 93312; 93320; 93325; 93880; P9045

== ENCOUNTER → 2024-01-03 08:51 | Outpatient (REF) | payer OTHER, SELFPAY ==
[2024-01-03 12:48] LABS: Blood Urea Nitrogen 17 mg/dl (7-17); Calcium 10.1 mg/dl (8.4-10.2); Carbon Dioxide 28 mmol/L (22-30); Chloride 100 mmol/L (98-107); Glucose 101 mg/dl (70-99); Potassium 4.6 mmol/L (3.5-5.1); Sodium 136 mmol/L (135-145); eGFR > 60.00
== END ==
LOC: HWLAB 08:51
PROVIDERS: ATTENDING PHYSICIAN Thoracic Surgery (Cardiothoracic Vascular Surgery); FAMILY PHYSICIAN Internal Medicine
DX: E87.1 Hypo-osmolality and hyponatremia (principal); I34.1 Nonrheumatic mitral (valve) prolapse
CPT/HCPCS: 36415; 80048

== ENCOUNTER 2024-02-07 13:40 | Outpatient (RCR) | payer OTHER, SELFPAY | END 2024-02-07 23:59 | disposition home or self-care (01) | LOC: CRHB 13:40 | PROVIDERS: ATTENDING PHYSICIAN Internal Medicine Interventional Cardiology; FAMILY PHYSICIAN Internal Medicine | DX: Z95.4 Presence of other heart-valve replacement (principal) | CPT/HCPCS: G0422; G0423 ==

== ENCOUNTER 2024-03-01 13:19 | Outpatient (RCR) | payer OTHER, SELFPAY | END 2024-03-01 23:59 | disposition home or self-care (01) | LOC: CRHB 13:19 | PROVIDERS: ATTENDING PHYSICIAN Internal Medicine Interventional Cardiology; FAMILY PHYSICIAN Internal Medicine | DX: Z95.4 Presence of other heart-valve replacement (principal) | CPT/HCPCS: G0422; G0423 ==

== ENCOUNTER → 2024-06-21 10:34 | Outpatient (REF) | payer OTHER, SELFPAY | LOC: RCS 10:34 | PROVIDERS: ATTENDING PHYSICIAN Thoracic Surgery (Cardiothoracic Vascular Surgery); FAMILY PHYSICIAN Internal Medicine | DX: Z98.890 Other specified postprocedural states (principal) | CPT/HCPCS: 93306 ==

== ENCOUNTER 2024-06-21 12:14 | Emergency (ER) | payer OTHER, SELFPAY ==
[2024-06-21 12:15] VITALS: BP 141/75
[2024-06-21 12:40] VITALS: BMI 24.1
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
[2024-06-21 13:32] VITALS: BP 138/79
== END 2024-06-21 14:01 | disposition home or self-care (01) ==
LOC: EMR 12:14
PROVIDERS: EMERGENCY PHYSICIAN Emergency Medicine; FAMILY PHYSICIAN Internal Medicine
DX: S20.219A Contusion of unspecified front wall of thorax, initial encounter (principal); M25.562 Pain in left knee; V43.52XA Car driver injured in collision with other type car in traffic accident, initial encounter; Y92.410 Unspecified street and highway as the place of occurrence of the external cause; I34.0 Nonrheumatic mitral (valve) insufficiency; M19.90 Unspecified osteoarthritis, unspecified site; H40.9 Unspecified glaucoma; F41.9 Anxiety disorder, unspecified; G89.29 Other chronic pain; Z96.651 Presence of right artificial knee joint
CPT/HCPCS: 99283; 71046; 93005

== ENCOUNTER → 2024-08-22 13:56 | Outpatient (REF) | payer OTHER, SELFPAY | LOC: HWRAD 13:56 | PROVIDERS: ATTENDING PHYSICIAN Otolaryngology; FAMILY PHYSICIAN Internal Medicine | DX: E04.2 Nontoxic multinodular goiter (principal) | CPT/HCPCS: 76536 ==

== ENCOUNTER → 2025-06-13 12:42 | Outpatient (REF) | payer OTHER, SELFPAY | LOC: HWRCS 12:42 | PROVIDERS: ATTENDING PHYSICIAN Thoracic Surgery (Cardiothoracic Vascular Surgery); FAMILY PHYSICIAN Internal Medicine | DX: Z98.890 Other specified postprocedural states (principal); I34.0 Nonrheumatic mitral (valve) insufficiency; R06.02 Shortness of breath; R91.8 Other nonspecific abnormal finding of lung field | CPT/HCPCS: 93306 ==

== ENCOUNTER → 2025-09-04 09:49 | Outpatient (REF) | payer OTHER, SELFPAY | LOC: HWRAD 09:49 | PROVIDERS: ATTENDING PHYSICIAN Otolaryngology; FAMILY PHYSICIAN Internal Medicine | DX: E04.2 Nontoxic multinodular goiter (principal) | CPT/HCPCS: 76536 ==